=== PATIENT | male | born 1955 | race Caucasian/White ===

== ENCOUNTER 2020-12-12 08:55 | Emergency (ER) | payer MEDICARE, SELFPAY ==
--- NOTE | 2020-12-12 | ECG_ITS ---
Test Reason : BACK PAIN Blood Pressure : / mmHG Vent. Rate : 066 BPM Atrial Rate : 066 BPM P-R Int : 112 ms QRS Dur : 102 ms QT Int : 402 ms P-R-T Axes : 061 021 064 degrees QTc Int : 421 ms Normal sinus rhythm Normal ECG When compared with ECG of 16-JAN-2011 07:39, No significant change was found Referred By: Generic ED Physician Electronically Signed By:CANDICE HUNT MD
--- NOTE | ~2020-12-12 | XR_ITS ---
EXAMINATION: XR CHEST CLINICAL INFORMATION: Right upper back pain. COMPARISON: Chest radiographs dated 01/12/2019. TECHNIQUE: 2 views of the chest were obtained. FINDINGS: There is generalized hyperinflation. Mildly coarsened interstitial markings are seen bilaterally without focal abnormality. The heart and mediastinal structures are unremarkable. XR/XR chest 2V IMPRESSION: Pulmonary findings consistent with COPD without significant interval change. No acute cardiopulmonary process.
[2020-12-12 09:09] VITALS: BP 151/85; PULSE 73; RESP 16; TEMP 36.7; O2SAT 98; BMI 22.6
--- NOTE | 2020-12-12 09:26 | ED.BACK ---
HPI - Back Pain/Injury General Chief Complaint: Back Pain/Injury <CHARLY Smith Last Filed: 12/12/20 11:13> Stated Complaint: shoulder pain <CHARLY Smith Last Filed: 12/12/20 11:13> Time Seen by Provider: 12/12/20 09:17 <CHARLY Smith Last Filed: 12/12/20 11:13> Source: patient <CHARLY Smith Last Filed: 12/12/20 11:13> Mode of arrival: ambulatory <CHARLY Smith Last Filed: 12/12/20 11:13> Limitations: no limitations <CHARLY Smith Last Filed: 12/12/20 11:13> History of Present Illness HPI Narrative: 65 yo male previously healthy here with complaints of right upper back and neck pain times 3-4 days. Patient recalls waking up with the pain. No injury or trauma. He is retired and denies any heavy lifting or bending. He has pain which radiates down the right arm which is associated with intermittent numbness and tingling. Using ibuprofen and Lidoderm patches with continued pain. No headache, weakness, chest pain, shortness of breath, cough, leg swelling or pain. <CHARLY Smith Last Filed: 12/12/20 11:13> Related Data Home Medications: Previous Rx's Medication Instructions Recorded cyclobenzaprine 10 mg PO TID PRN #10 tab 12/12/20 lidocaine [Lidoderm] 1 patch TOPICAL DAILY #15 ea 12/12/20 prednisone 40 mg PO DAILY #10 tab 12/12/20 diazepam [Valium] 10 mg PO TID PRN 1 Days #7 tab 12/19/20 oxycodone 5 mg PO Q6H PRN #14 cap 12/19/20 <CHARLY Smith Last Filed: 12/12/20 11:13> Allergies/Adverse Reactions: Allergies Allergy/AdvReac Type Severity Reaction Status Date / Time No Known Allergies Allergy Verified 12/12/20 09:13 <CHARLY Smith Last Filed: 12/12/20 11:13> Review of Systems Review of Systems: Yes all other systems are reviewed and are negative <Tootie Wallace NP - Last Filed: 12/12/20 11:13> Constitutional: Constitutional: Reports no additional constitutional complaints, Denies body ache(s), Denies chills, Denies fever(s), Denies headache(s) and Denies weakness <Tootie Wallace NP - Last Filed: 12/12/20 11:13> Eyes: Eyes: Reports no additional eye complaints and Denies change in vision <Tootie Wallace NP - Last Filed: 12/12/20 11:13> ENT: Reports system reviewed and no additional complaints, except as documented, Denies dizziness, Denies headache(s), Denies nasal congestion, Denies nasal discharge and Denies neck pain <Tootie Wallace NP - Last Filed: 12/12/20 11:13> Cardiovascular: Cardiovascular: Reports no additional cardiovascular complaints, Denies chest pain, Denies leg edema and Denies dyspnea <Tootie Wallace NP - Last Filed: 12/12/20 11:13> Respiratory: Respiratory: Reports no additional respiratory complaints, Denies cough and Denies dyspnea <Tootie Wallace NP - Last Filed: 12/12/20 11:13> Gastrointestinal: Gastrointestinal: Reports no additional gastrointestinal complaints, Denies abdominal pain, Denies diarrhea, Denies nausea and Denies vomiting <Tootie Wallace NP - Last Filed: 12/12/20 11:13> Genitourinary: Genitourinary: Denies urinary incontinence <Tootie Wallace NP - Last Filed: 12/12/20 11:13> Musculoskeletal: Musculoskeletal: Reports no additional musculoskeletal complaints, Reports back pain, Denies arthralgias, Denies joint swelling, Denies neck pain, Denies numbness and Reports tingling <Tooite Wallace NP - Last Filed: 12/12/20 11:13> Integumentary/Breasts: Skin/Breast: Reports system reviewed and no additional complaints, except as docu and Denies rash <Tootie Wallace NP - Last Filed: 12/12/20 11:13> Neurologic: Reports system reviewed and no additional complaints, except as documented, Denies Abnormal speech present, Denies dizziness, Denies headache(s), Denies numbness, Reports tingling and Denies weakness <Tootie Wallace NP - Last Filed: 12/12/20 11:13> PENDING SALE TO [facility] Past Medical History Attestation statement: The following information was validated with the patient. <Tootie Wallace NP - Last Filed: 12/12/20 11:13> Source: old records reviewed and nursing notes reviewed <Tootie Wallace NP - Last Filed: 12/12/20 11:13> Medical History: Medical History No known health problems <Tootie Wallace NP - Last Filed: 12/12/20 11:13> Surgical History: Surgical History H/O hernia repair <Tootie Wallace NP - Last Filed: 12/12/20 11:13> Social History Social History: Social History Advance Directives: No Advance Directives Information Provided: No <Tootie Wallace NP - Last Filed: 12/12/20 11:13> Physical Exam Vital Signs: Vital Signs: Last Vital Signs Temp 98.0 F 12/12/20 09:09 Pulse 73 12/12/20 09:09 Resp 16 12/12/20 09:09 BP 151/85 H 12/12/20 09:09 Pulse Ox 98 12/12/20 09:09 Body Mass Index 22.6 <Tootie Wallace NP - Last Filed: 12/12/20 11:13> Vital Signs: Last Vital Signs Temp 98.0 F 12/12/20 09:09 Pulse 73 12/12/20 09:09 Resp 16 12/12/20 09:09 BP 151/85 H 12/12/20 09:09 Pulse Ox 98 12/12/20 09:09 Body Mass Index 22.6 <Sathya Fonseca MD - Last Filed: 12/26/20 14:31> Const: General: cooperative, healthy appearing, comfortable and no acute distress <Tootie Wallace NP - Last Filed: 12/12/20 11:13> Orientation/consciousness: patient oriented x3 <Tootie Wallace NP - Last Filed: 12/12/20 11:13> Limitations: no limitations <Tootie Wallace NP - Last Filed: 12/12/20 11:13> HENMT: Head: Yes normal to inspection <Tootie Wallace NP - Last Filed: 12/12/20 11:13> Ears: hearing grossly normal bilaterally <Tootie Wallace NP - Last Filed: 12/12/20 11:13> General nose exam: Normal external nose present <Tootie Wallace NP - Last Filed: 12/12/20 11:13> Face and sinus: Yes normal facial exam <Tootie Wallace NP - Last Filed: 12/12/20 11:13> Mouth: Normal oral and palatal mucosa present <Tootie Wallace NP - Last Filed: 12/12/20 11:13> Throat: Yes posterior oropharynx normal <Tootie Wallace NP - Last Filed: 12/12/20 11:13> Eyes: General: appearance normal, both eyes and all related structures <Tootie Wallace NP - Last Filed: 12/12/20 11:13> Pupils: Equal, round and reactive pupils present <Tootie Wallace NP - Last Filed: 12/12/20 11:13> Neck: Other: In the right upper back over the trapezius muscle there is palpable tenderness with a muscle spasm. When compressed the patient reports pain radiating down the right arm. Full range of motion of right upper extremity with no difficulty. 5/5 strength in the right upper extremity. Sensation is intact on exam. +palpable pulse distally. <Tootie Wallace NP - Last Filed: 12/12/20 11:13> Neck: Yes normal visual inspection <Tootie Wallaec NP - Last Filed: 12/12/20 11:13> Chest: Chest palpation & inspection: normal inspection of the chest <Tootie Wallace NP - Last Filed: 12/12/20 11:13> Resp: Effort & Inspection: normal respiratory effort <Tootie Wallace NP - Last Filed: 12/12/20 11:13> Auscultation: clear to auscultation bilaterally <Tootie Wallace NP - Last Filed: 12/12/20 11:13> Cardio: Rate: regular rate <Tootie Wallace NP - Last Filed: 12/12/20 11:13> Rhythm: regular rhythm <Tootie Wallace NP - Last Filed: 12/12/20 11:13> Peripheral pulses: Peripheral pulses 2+ throughout <Tootie Wallace NP - Last Filed: 12/12/20 11:13> GI: Inspection: Yes normal to inspection <Tootie Wallace NP - Last Filed: 12/12/20 11:13> Palpation (GI): Soft to palpation and nontender <Tootie Wallace NP - Last Filed: 12/12/20 11:13> Auscultation: normal bowel sounds <Tootie Wallace NP - Last Filed: 12/12/20 11:13> Back/Spine/Pelvis: Thoracic/Lumbar Spine: thoracic and lumbar spine normal to inspection <Tootie Wallace NP - Last Filed: 12/12/20 11:13> Skin: General skin exam: no rashes or lesions noted <Tootie Wallace NP - Last Filed: 12/12/20 11:13> Neuro: General: patient oriented x3, no focal motor deficits and normal sensation to monofilament <Tootie Wallace NP - Last Filed: 12/12/20 11:13> Cranial nerves: Yes Equal, round and reactive pupils present <Tootie Wallace NP - Last Filed: 12/12/20 11:13> Cognition (Neuro): normal cognition <Tootie Wallace NP - Last Filed: 12/12/20 11:13> Speech: No Abnormal speech present <Tootie Wallace NP - Last Filed: 12/12/20 11:13> Gait exam (Neuro): Normal gait present <Tootie Wallace NP - Last Filed: 12/12/20 11:13> Motor exam (neuro): 5/5 motor strength present throughout <Tootie Wallace NP - Last Filed: 12/12/20 11:13> Extrem: General: Yes normal to inspection <Tootie Wallace NP - Last Filed: 12/12/20 11:13> Course Course Course Narrative: 65-year-old male here with right upper back pain times 3-4 days, atraumatic with radiation down the right arm with intermittent numbness and tingling. Due to age, risk factors of cigarette smoking will check EKG, CXR, labs. 1020-labs unremarkable. EKG shows no ischemic changes. Chest x-ray consistent with COPD but no other acute finding. Patient tells me that his pain is improved after receiving some IV Toradol and a dose of p.o. Flexeril here. Likely cervical radiculopathy. Reviewed findings with the patient. Reviewed worrisome signs and symptoms including weakness, chest pain, shortness of breath when to return to the emergency department. Comfortable discharge home. <Tootie Wallace NP - Last Filed: 12/12/20 11:13> I have reviewed the chart <Sathya Fonseca MD - Last Filed: 12/26/20 14:31> MDM - Back Pain/Injury MDM Narrative Medical decision making narrative: Cervical radiculopathy, ACS As likely ACS with symptoms greater than 4 days, negative troponin and EKG which shows no EKG changes <Tootie Wallace NP - Last Filed: 12/12/20 11:13> Medical Records Attestation: I reviewed the patient's medical records. <Tootie Wallace NP - Last Filed: 12/12/20 11:13> Lab Data Attestation: I reviewed the patient's lab results. <Tootie Wallace NP - Last Filed: 12/12/20 11:13> Result diagrams: : 12/12/20 09:31 12/12/20 09:31 <Tootie Wallace NP - Last Filed: 12/12/20 11:13> Labs: Lab Results 12/12/20 12/12/20 12/12/20 Range/Units 09:31 09:31 09:31 WBC 7.0 (4.8-10.8) X10*3/uL RBC 4.55 L (4.60-5.80) X10*6/uL Hgb 14.0 (14.0-18.0) g/dl Hct 42.5 (42-52) % MCV 93.4 (80-98) fL MCH 30.8 (27.0-33.0) pg MCHC 32.9 (31.0-36.0) g/dl RDW 12.1 (11.0-16.0) % Plt Count 219 (160-400) X10*3/uL MPV 10.9 (9.4-12.4) fL Immature Gran % (Auto) 0.3 (0.0-0.4) % Neut % (Auto) 64.3 (45-73) % Lymph % (Auto) 24.3 (20-40) % Dewey % (Auto) 8.3 (2-11) % Eos % (Auto) 2.4 (0-4) % Baso % (Auto) 0.4 (0-2) % Lymph # (Auto) 1.7 (1.2-4.9) X10*3/uL Dewey # (Auto) 0.6 (0.1-1.2) X10*3/uL Eos # (Auto) 0.2 (0.0-0.4) X10*3/uL Baso # (Auto) 0.0 (0.0-0.2) X10*3/uL Abs Immat Gran (auto) 0.02 (0.00-0.03) X10*3/uL Absolute Neuts (auto) 4.5 (2.0-8.3) X10*3/uL Absolute Nucleated RBC 0.000 (0.0-0.012) X10*3/uL Nucleated RBC % (auto) 0.0 (0.0-0.2) /100WBC Hold Blue Top SEE NOTE Sodium 140 (135-145) mmol/L Potassium 4.2 (3.3-5.1) mmol/L Chloride 107 (96-108) mmol/L Carbon Dioxide 26 (22-29) mmol/L Anion Gap 11 L (12-20) BUN 16 (9-16) mg/dL Creatinine 0.94 (0.5-1.4) mg/dL Estim Creat Clear Calc 68.4 Estimated GFR > 60 Random Glucose 110 (60-115) mg/dL Calcium 8.7 (8.4-10.2) mg/dL Magnesium 2.3 (1.6-2.6) mg/dL Total Bilirubin 0.5 (0.0-1.0) mg/dL Direct Bilirubin 0.2 (0.0-0.5) mg/dL AST 15 (5-37) U/L ALT 10 (0-40) U/L Alkaline Phosphatase 124 H (39-117) U/L Troponin I High Sens (<3.5-35.0) ng/L Total Protein 6.6 (6.5-8.0) g/dL Albumin 4.1 (3.5-5.0) g/dL 12/12/20 Range/Units 09:31 WBC (4.8-10.8) X10*3/uL RBC (4.60-5.80) X10*6/uL Hgb (14.0-18.0) g/dl Hct (42-52) % MCV (80-98) fL MCH (27.0-33.0) pg MCHC (31.0-36.0) g/dl RDW (11.0-16.0) % Plt Count (160-400) X10*3/uL MPV (9.4-12.4) fL Immature Gran % (Auto) (0.0-0.4) % Neut % (Auto) (45-73) % Lymph % (Auto) (20-40) % Dewey % (Auto) (2-11) % Eos % (Auto) (0-4) % Baso % (Auto) (0-2) % Lymph # (Auto) (1.2-4.9) X10*3/uL Dewey # (Auto) (0.1-1.2) X10*3/uL Eos # (Auto) (0.0-0.4) X10*3/uL Baso # (Auto) (0.0-0.2) X10*3/uL Abs Immat Gran (auto) (0.00-0.03) X10*3/uL Absolute Neuts (auto) (2.0-8.3) X10*3/uL Absolute Nucleated RBC (0.0-0.012) X10*3/uL Nucleated RBC % (auto) (0.0-0.2) /100WBC Hold Blue Top Sodium (135-145) mmol/L Potassium (3.3-5.1) mmol/L Chloride (96-108) mmol/L Carbon Dioxide (22-29) mmol/L Anion Gap (12-20) BUN (9-16) mg/dL Creatinine (0.5-1.4) mg/dL Estim Creat Clear Calc Estimated GFR Random Glucose (60-115) mg/dL Calcium (8.4-10.2) mg/dL Magnesium (1.6-2.6) mg/dL Total Bilirubin (0.0-1.0) mg/dL Direct Bilirubin (0.0-0.5) mg/dL AST (5-37) U/L ALT (0-40) U/L Alkaline Phosphatase (39-117) U/L Troponin I High Sens 3.7 (<3.5-35.0) ng/L Total Protein (6.5-8.0) g/dL Albumin (3.5-5.0) g/dL <Tootie Wallace TUG CAPTAIN - Last Filed: 12/12/20 11:13> Lab Results 12/12/20 12/12/20 12/12/20 Range/Units 09:31 09:31 09:31 WBC 7.0 (4.8-10.8) X10*3/uL RBC 4.55 L (4.60-5.80) X10*6/uL Hgb 14.0 (14.0-18.0) g/dl Hct 42.5 (42-52) % MCV 93.4 (80-98) fL MCH 30.8 (27.0-33.0) pg MCHC 32.9 (31.0-36.0) g/dl RDW 12.1 (11.0-16.0) % Plt Count 219 (160-400) X10*3/uL MPV 10.9 (9.4-12.4) fL Immature Gran % (Auto) 0.3 (0.0-0.4) % Neut % (Auto) 64.3 (45-73) % Lymph % (Auto) 24.3 (20-40) % Dewey % (Auto) 8.3 (2-11) % Eos % (Auto) 2.4 (0-4) % Baso % (Auto) 0.4 (0-2) % Lymph # (Auto) 1.7 (1.2-4.9) X10*3/uL Dewey # (Auto) 0.6 (0.1-1.2) X10*3/uL Eos # (Auto) 0.2 (0.0-0.4) X10*3/uL Baso # (Auto) 0.0 (0.0-0.2) X10*3/uL Abs Immat Gran (auto) 0.02 (0.00-0.03) X10*3/uL Absolute Neuts (auto) 4.5 (2.0-8.3) X10*3/uL Absolute Nucleated RBC 0.000 (0.0-0.012) X10*3/uL Nucleated RBC % (auto) 0.0 (0.0-0.2) /100WBC Hold Blue Top SEE NOTE Sodium 140 (135-145) mmol/L Potassium 4.2 (3.3-5.1) mmol/L Chloride 107 (96-108) mmol/L Carbon Dioxide 26 (22-29) mmol/L Anion Gap 11 L (12-20) BUN 16 (9-16) mg/dL Creatinine 0.94 (0.5-1.4) mg/dL Estim Creat Clear Calc 68.4 Estimated GFR > 60 Random Glucose 110 (60-115) mg/dL Calcium 8.7 (8.4-10.2) mg/dL Magnesium 2.3 (1.6-2.6) mg/dL Total Bilirubin 0.5 (0.0-1.0) mg/dL Direct Bilirubin 0.2 (0.0-0.5) mg/dL AST 15 (5-37) U/L ALT 10 (0-40) U/L Alkaline Phosphatase 124 H (39-117) U/L Troponin I High Sens (<3.5-35.0) ng/L Total Protein 6.6 (6.5-8.0) g/dL Albumin 4.1 (3.5-5.0) g/dL 12/12/20 Range/Units 09:31 WBC (4.8-10.8) X10*3/uL RBC (4.60-5.80) X10*6/uL Hgb (14.0-18.0) g/dl Hct (42-52) % MCV (80-98) fL MCH (27.0-33.0) pg MCHC (31.0-36.0) g/dl RDW (11.0-16.0) % Plt Count (160-400) X10*3/uL MPV (9.4-12.4) fL Immature Gran % (Auto) (0.0-0.4) % Neut % (Auto) (45-73) % Lymph % (Auto) (20-40) % Dewey % (Auto) (2-11) % Eos % (Auto) (0-4) % Baso % (Auto) (0-2) % Lymph # (Auto) (1.2-4.9) X10*3/uL Dewey # (Auto) (0.1-1.2) X10*3/uL Eos # (Auto) (0.0-0.4) X10*3/uL Baso # (Auto) (0.0-0.2) X10*3/uL Abs Immat Gran (auto) (0.00-0.03) X10*3/uL Absolute Neuts (auto) (2.0-8.3) X10*3/uL Absolute Nucleated RBC (0.0-0.012) X10*3/uL Nucleated RBC % (auto) (0.0-0.2) /100WBC Hold Blue Top Sodium (135-145) mmol/L Potassium (3.3-5.1) mmol/L Chloride (96-108) mmol/L Carbon Dioxide (22-29) mmol/L Anion Gap (12-20) BUN (9-16) mg/dL Creatinine (0.5-1.4) mg/dL Estim Creat Clear Calc Estimated GFR Random Glucose (60-115) mg/dL Calcium (8.4-10.2) mg/dL Magnesium (1.6-2.6) mg/dL Total Bilirubin (0.0-1.0) mg/dL Direct Bilirubin (0.0-0.5) mg/dL AST (5-37) U/L ALT (0-40) U/L Alkaline Phosphatase (39-117) U/L Troponin I High Sens 3.7 (<3.5-35.0) ng/L Total Protein (6.5-8.0) g/dL Albumin (3.5-5.0) g/dL <Sathya Fonseca MD - Last Filed: 12/26/20 14:31> Imaging Data Chest x-ray: Attestation: I personally reviewed and interpreted this imaging study as follows: <Tootie Wallace NP - Last Filed: 12/12/20 11:13> Radiologist's impression: IMPRESSION: Pulmonary findings consistent with COPD without significant interval change. No acute cardiopulmonary process. <Tootie Wallace NP - Last Filed: 12/12/20 11:13> ECG Data Attestation: I personally reviewed and interpreted this ECG as follows: <Tootie Wallace NP - Last Filed: 12/12/20 11:13> ECG interpretation date: 12/12/20 <Tootie Wallace NP - Last Filed: 12/12/20 11:13> ECG interpretation time: 09:15 <Tootie Wallace NP - Last Filed: 12/12/20 11:13> Interpretation: Normal sinus rhythm with a rate of 66, normal [place], normal QRS, normal QTC <Tootie Wallace NP - Last Filed: 12/12/20 11:13> Discharge Plan Discharge Clinical Impression: Cervical radiculopathy <Tootie Wallace NP - Last Filed: 12/12/20 11:13> Patient Disposition: Home, Self-Care <Tootie Wallace NP - Last Filed: 12/12/20 11:13> Instructions: Cervical Radiculopathy (ED) <Tootie Wallace NP - Last Filed: 12/12/20 11:13> Additional Instructions: Heat to the area. Gentle stretching. Follow-up with primary care doctor this week. Continue ibuprofen and medicated patches. We are also prescribing a low-dose muscle relaxant which can take every 8 hours as needed and several days of prednisone. <Tootie Wallace NP - Last Filed: 12/12/20 11:13> Prescriptions: New cyclobenzaprine 10 mg tablet 10 mg PO TID PRN (Reason: muscle spasm) Qty: 10 RF: 0 lidocaine [Lidoderm] 5 % adhesive patch,medicated 1 patch topical DAILY Qty: 15 RF: 0 prednisone 20 mg tablet 40 mg PO DAILY Qty: 10 RF: 0 No Action diazepam [Valium] 10 mg tablet 10 mg PO TID PRN (Reason: muscle spasm) 1 Days Qty: 7 RF: 0 oxycodone 5 mg capsule 5 mg PO Q6H PRN (Reason: pain) Qty: 14 RF: 0 <Tootie Wallace NP - Last Filed: 12/12/20 11:13> Referrals: Guanaco Gillespie MD [Primary Care Provider] - 2 days <Tootie Wallace NP - Last Filed: 12/12/20 11:13> Interventions: ED Discharge Assessment Last Done: 12/12/20 10:38 <Tootie Wallace NP - Last Filed: 12/12/20 11:13> Discharge Date/Time: 12/12/20 10:43 <Tootie Wallace NP - Last Filed: 12/12/20 11:13>
[2020-12-12 09:39] LABS: MANUAL DIFF FLAG NO
[2020-12-12 09:40] LABS: Basophils Percent Auto 0.4 % (0-2); Eosinophils Absolute Auto 0.2 X10*3/uL (0.0-0.4); Eosinophils Percent Auto 2.4 % (0-4); Hematocrit 42.5 % (42-52); Imm Gran Abs Auto 0.02 X10*3/uL (0.00-0.03); Imm Gran Pct Auto 0.3 % (0.0-0.4); Lymphocytes Absolute Auto 1.7 X10*3/uL (1.2-4.9); Lymphocytes Percent Auto 24.3 % (20-40); Mean Corpuscular HGB Conc 32.9 g/dl (31.0-36.0); Mean Corpuscular Hemoglobin 30.8 pg (27.0-33.0); Mean Corpuscular Volume 93.4 fL (80-98); Mean Platelet Volume 10.9 fL (9.4-12.4); Monocytes Absolute Auto 0.6 X10*3/uL (0.1-1.2); Monocytes Percent Auto 8.3 % (2-11); Neutrophils Absolute Auto 4.5 X10*3/uL (2.0-8.3); Neutrophils Percent Auto 64.3 % (45-73); Platelet Count 219 X10*3/uL (160-400); Red Blood Count 4.55 X10*6/uL (4.60-5.80); Red Cell Distribution Width 12.1 % (11.0-16.0)
[2020-12-12] MEDS: Ketorolac Tromethamine 30 MG/ML VIAL IVPUSH (09:42)
[2020-12-12] MEDS: Cyclobenzaprine HCl 10 MG TABLET PO (09:43)
--- NOTE | 2020-12-12 09:59 | PC.NURSE ---
20 ga iv est in l ac approx 0930 pt resting comfortably in chair with strong and regular radial pulse and nonlabored resps. awaiting lab results.
[2020-12-12 10:01] LABS: Alanine Aminotransferase 10 U/L (0-40); Albumin Level 4.1 g/dL (3.5-5.0); Alkaline Phosphatase 124 U/L (39-117); Anion Gap 11 (12-20); Aspartate Amino Transferase 15 U/L (5-37); Bilirubin Direct 0.2 mg/dL (0.0-0.5); Bilirubin Total 0.5 mg/dL (0.0-1.0); Blood Urea Nitrogen 16 mg/dL (9-16); Calcium 8.7 mg/dL (8.4-10.2); Carbon Dioxide 26 mmol/L (22-29); Chloride 107 mmol/L (96-108); Creatinine Clr Calc Pharmacy 68.4; Estimated Glomerular Filt Rate > 60; Glucose Random 110 mg/dL (60-115); Magnesium 2.3 mg/dL (1.6-2.6); Potassium 4.2 mmol/L (3.3-5.1); Sodium 140 mmol/L (135-145); Total Protein 6.6 g/dL (6.5-8.0)
[2020-12-12 10:05] LABS: Troponin-I High Sensitivity 3.7 ng/L (<3.5-35.0)
== END 2020-12-12 10:43 | disposition home or self-care (01) ==
PROVIDERS: Nurse Practitioner Family; Emergency Provider Emergency Medicine; PCP Internal Medicine
DX: M54.12 Radiculopathy, cervical region (principal); M54.2 Cervicalgia; Z79.899 Other long term (current) drug therapy
CPT/HCPCS: 36415; 71046; 80048; 80076; 83735; 84484; 85025; 93005; 96374; 99283; 99284; J1885

== ENCOUNTER 2020-12-19 09:47 | Emergency (ER) | payer MEDICARE, SELFPAY ==
[2020-12-19 09:57] VITALS: BP 173/97; PULSE 79; RESP 18; TEMP 36.8; O2SAT 95; BMI 23.3
--- NOTE | 2020-12-19 10:00 | ED_ITS ---
HPI - General Adult General Chief complaint: Neck Pain/Injury Stated complaint: back,shoulder pain Time Seen by Provider: 12/19/20 09:59 History of Present Illness HPI narrative: Patient complains of pain shooting down his right arm from a painful area in the right trapezius with tingling down right arm , no numbness no weakness, no changes to bowel or bladder, no trauma or inury Related Data Previous Rx's Medication Instructions Recorded cyclobenzaprine 10 mg PO TID PRN #10 tab 12/12/20 lidocaine [Lidoderm] 1 patch TOPICAL DAILY #15 ea 12/12/20 prednisone 40 mg PO DAILY #10 tab 12/12/20 diazepam [Valium] 10 mg PO TID PRN 1 Days #7 tab 12/19/20 oxycodone 5 mg PO Q6H PRN #14 cap 12/19/20 Allergies Allergy/AdvReac Type Severity Reaction Status Date / Time No Known Allergies Allergy Verified 12/12/20 09:13 Review of Systems Review of Systems: Positive for right-sided neck and trapezius pain with pain radiating down to the right arm with some tingling Negatives are no fever no chills no dizziness no weakness no numbness no changes to bowel or bladder no chest pain no shortness of breath no abdominal pain PMFSH Past Medical History Source: nursing notes reviewed Medical History No known health problems Surgical History H/O hernia repair Social History Social History Advance Directives: No Advance Directives Information Provided: No Physical Exam Vital Signs: Vital Signs: Last Vital Signs Temp 98.3 F 12/19/20 09:57 Pulse 79 12/19/20 09:57 Resp 18 12/19/20 09:57 BP 173/97 H 12/19/20 09:57 Pulse Ox 95 12/19/20 09:57 Body Mass Index 23.3 General appearance no acute distress, uncomfortable appearing relaxed and cooperative Head is normocephalic atraumatic The neck is supple but there is some pain with movement and there is tenderness to the right trapezius and the right lateral neck there is no midline tenderness, skin of the neck was normal The chest was clear to auscultation bilaterally with full symmetric equal breath sounds The heart rate and rhythm regular no murmur Abdomen soft nontender The back had a full range of motion Skin no rash Neuro earth observations chief scientist strength was 5/5 and symmetrical in both hands, motor is 5/5 and symmetrical Sensation was intact and symmetrical in both hands, gait and balance were normal, verbal interaction comprehension and speech were normal, no facial asymmetry Course Course Course Narrative: Patient can follow closely with primary doctor and is discharged with analgesics, there was no neurological deficit Discharge Plan Discharge Clinical Impression: Cervical radiculopathy Patient Disposition: Home, Self-Care Additional Instructions: Because muscle relaxer and lidocaine patch are not sufficient for pain relief we are heading some medications Instead of the Flexeril, you can try Valium as a muscle relaxer at night as it may be more effective and help with sleep As Tylenol and Motrin have not been sufficient you can try oxycodone which is a narcotic pain killer in you can take 1 or 2 every 6 hours as needed Both Valium and oxycodone cause drowsiness so no driving for 6-8 hours after taking either 1 of them Get a referral from your primary doctor for physical therapy and possible specialist evaluation You can try [facility] [phone] Best plan for pain control is make sure you are taking 2 extra-strength Tylenol so, a 1000 mg 3 times a day as well as Motrin 4 times a day, and then use oxycodone narcotic only as needed Prescriptions: New diazepam [Valium] 10 mg tablet 10 mg PO TID PRN (Reason: muscle spasm) 1 Days Qty: 7 RF: 0 oxycodone 5 mg capsule 5 mg PO Q6H PRN (Reason: pain) Qty: 14 RF: 0 No Action cyclobenzaprine 10 mg tablet 10 mg PO TID PRN (Reason: muscle spasm) Qty: 10 RF: 0 lidocaine [Lidoderm] 5 % adhesive patch,medicated 1 patch topical DAILY Qty: 15 RF: 0 prednisone 20 mg tablet 40 mg PO DAILY Qty: 10 RF: 0 Interventions: ED Discharge Assessment Last Done: 12/19/20 10:32 Discharge Date/Time: 12/19/20 10:32
== END 2020-12-19 10:32 | disposition home or self-care (01) ==
PROVIDERS: Emergency Provider Emergency Medicine; PCP Internal Medicine
DX: M54.12 Radiculopathy, cervical region (principal); M25.511 Pain in right shoulder
CPT/HCPCS: 99283

== ENCOUNTER 2020-12-28 08:44 | Outpatient (REF) | payer MEDICARE, SELFPAY ==
--- NOTE | ~2020-12-28 | XR_ITS ---
EXAMINATION: XR CERVICAL SPINE CLINICAL INFORMATION: Shoulder neck pain. COMPARISON: CT of the neck soft tissues dated 04/14/2011. TECHNIQUE: 3 views of the cervical spine were obtained. FINDINGS: There is straightening of expected cervical lordosis. Atlantodens interval is preserved. The dens is obscured by overlying soft tissues. The C1-C2 articulation appears normally aligned. Endplate sclerosis and anterior marginal endplate osteophytes are noted from C5-C7 with mild C5-C6 and moderate C6-C7 degenerative disc height loss. Tiny ossicles are noted superficial to the C4-C6 spinous processes. Calcifications in the bilateral neck soft tissues likely vascular. Visualized lung apices are clear. XR/XR cervical spine 3V IMPRESSION: Cervical spondylosis centered at C5-C7.
[2020-12-28 10:16] LABS: C Reactive Protein 0.12 mg/dL (< or = 0.50); Cholesterol 208 mg/dL; HDL Cholesterol 59 mg/dL; LDL Cholesterol Calculated 128 mg/dl; Triglycerides 109 mg/dL
[2020-12-28 10:26] LABS: Prostate Specific Antigen 1.03 ng/mL (<0.05-4.0)
[2020-12-28 10:57] LABS: Glucose Urine UA NEG (NEG); Leukocyte Esterase Urine NEG (NEG); Nitrite Urine NEG (NEG); Urine Blood NEG (NEG); Urine Ketones NEG (NEG); Urine Protein NEG (NEG-TRACE)
[2020-12-28 11:06] LABS: Appearance Urine CLEAR; Color Urine YELLOW
== END 2020-12-28 08:45 | disposition home or self-care (01) ==
LOC: HO.LAB 08:44
PROVIDERS: PCP Internal Medicine; Visit Provider Internal Medicine
DX: Z12.5 Encounter for screening for malignant neoplasm of prostate (principal); M54.2 Cervicalgia; M25.511 Pain in right shoulder; J44.9 Chronic obstructive pulmonary disease, unspecified; N40.0 Benign prostatic hyperplasia without lower urinary tract symptoms
CPT/HCPCS: 36415; 72040; 80061; 81003; 84153; 86140

== ENCOUNTER 2021-01-18 10:31 | Outpatient (REF) | payer MEDICARE, SELFPAY ==
--- NOTE | ~2021-01-18 | MR_ITS ---
EXAMINATION: MR CERVICAL SPINE WITHOUT CONTRAST CLINICAL INFORMATION: Right arm radiculopathy. COMPARISON: Cervical spine radiographs from 12/28/2020. TECHNIQUE: MRI of the cervical spine was obtained using routine sequences without contrast. FINDINGS: Minimal degenerative retrolisthesis of C3 on C4. Otherwise, normal anatomic alignment. Advanced degenerative disc disease at C5-C6 and C6-C7. Mild degenerative disc disease at all additional cervical levels. Associated mixed Modic type discogenic endplate changes including mild Modic type I discogenic edema at C5-C6 and C6-C7. Mild marrow edema within the right-sided C4-C5 facets consistent with degenerative stress reaction. No additional suspicious marrow edema. The vertebral body heights are largely maintained. The spinal cord signal abnormalities. Limited evaluation of the soft tissues of the neck without demonstrated abnormalities. The flow voids of the major cervical vessels are maintained. Normal appearance of the cervicomedullary junction and visualized posterior fossa. SPINAL LEVELS: C2-C3: Mild disc-osteophyte complex. There is no uncovertebral joint arthropathy. There is severe right and mild left facet joint arthropathy. There is moderate right and no left neural foraminal stenosis. There is no spinal canal stenosis. C3-C4: Moderate disc-osteophyte complex. There is moderate right worse than left uncovertebral joint arthropathy. There is moderate bilateral facet joint arthropathy. There is severe right and mild left neural foraminal stenosis. There is no spinal canal stenosis. C4-C5: Mild disc-osteophyte complex. There is mild bilateral uncovertebral joint arthropathy. There is moderate bilateral facet joint arthropathy. There is severe right and moderate left neural foraminal stenosis. There is no spinal canal stenosis. C5-C6: Moderate disc-osteophyte complex. There is severe right and moderate left uncovertebral joint arthropathy. There is moderate bilateral facet joint arthropathy. There is severe right and moderate left neural foraminal stenosis. There is mild spinal canal stenosis. C6-C7: Moderate disc-osteophyte complex. There is severe right and moderate left uncovertebral joint arthropathy. There is moderate bilateral facet joint arthropathy. There is moderate right worse than left neural foraminal stenosis. There is mild spinal canal stenosis. C7-T1: Normal annular contour. There is mild bilateral uncovertebral joint arthropathy. There is mild bilateral facet joint arthropathy. There is no neural foraminal stenosis. There is no spinal canal stenosis. MR/MR cervical spine wo con IMPRESSION: Moderate multilevel degenerative spondyloarthropathy of the cervical spine as described in detail above. Most notably, there are mild spinal canal stenoses at C5-C6 and C6-C7. Moderate to severe neural foraminal stenoses from C2-C7.
== END 2021-01-18 10:32 | disposition home or self-care (01) ==
LOC: HO.MRI 10:31
PROVIDERS: Visit Provider Internal Medicine
DX: M54.12 Radiculopathy, cervical region (principal)
CPT/HCPCS: 72141

== ENCOUNTER 2021-02-22 09:19 | Outpatient (REF) | payer MEDICARE, SELFPAY ==
[2021-02-22 10:05] LABS: MANUAL DIFF FLAG NO
[2021-02-22 10:17] LABS: Basophils Percent Auto 0.5 % (0-2); Eosinophils Absolute Auto 0.1 X10*3/uL (0.0-0.4); Eosinophils Percent Auto 1.7 % (0-4); Hemoglobin 14.4 g/dl (14.0-18.0); Imm Gran Abs Auto 0.02 X10*3/uL (0.00-0.03); Imm Gran Pct Auto 0.3 % (0.0-0.4); Lymphocytes Absolute Auto 1.7 X10*3/uL (1.2-4.9); Lymphocytes Percent Auto 27.2 % (20-40); Mean Corpuscular HGB Conc 33.5 g/dl (31.0-36.0); Mean Corpuscular Hemoglobin 31.2 pg (27.0-33.0); Mean Corpuscular Volume 93.1 fL (80-98); Mean Platelet Volume 10.9 fL (9.4-12.4); Monocytes Absolute Auto 0.5 X10*3/uL (0.1-1.2); Monocytes Percent Auto 7.8 % (2-11); Neutrophils Percent Auto 62.5 % (45-73); Platelet Count 256 X10*3/uL (160-400); Red Blood Count 4.62 X10*6/uL (4.60-5.80); Red Cell Distribution Width 12.2 % (11.0-16.0); White Blood Count 6.3 X10*3/uL (4.8-10.8)
[2021-02-22 10:51] LABS: Alanine Aminotransferase 8 U/L (0-40); Albumin Level 4.1 g/dL (3.5-5.0); Alkaline Phosphatase 119 U/L (39-117); Anion Gap 12 (12-20); Aspartate Amino Transferase 19 U/L (5-37); Bilirubin Total 1.2 mg/dL (0.0-1.0); Blood Urea Nitrogen 17 mg/dL (9-16); Carbon Dioxide 23 mmol/L (22-29); Chloride 107 mmol/L (96-108); Cholesterol 179 mg/dL; Estimated Glomerular Filt Rate > 60; Glucose Fasting 89 mg/dL (60-99); HDL Cholesterol 49 mg/dL; LDL Cholesterol Calculated 117 mg/dl; Potassium 4.4 mmol/L (3.3-5.1); Sodium 138 mmol/L (135-145); Total Protein 6.5 g/dL (6.5-8.0); Triglycerides 67 mg/dL
[2021-02-22 11:15] LABS: Thyroid Stimulating Hormone 0.63 uIU/mL (0.32-4.0)
== END 2021-02-22 09:20 | disposition home or self-care (01) ==
LOC: HO.LAB 09:19
PROVIDERS: PCP Internal Medicine; Visit Provider Internal Medicine
DX: Z00.00 Encounter for general adult medical examination without abnormal findings (principal); E11.9 Type 2 diabetes mellitus without complications; E03.9 Hypothyroidism, unspecified
CPT/HCPCS: 36415; 80053; 80061; 84443; 85025

== ENCOUNTER 2021-08-21 10:47 | Outpatient (REF) | payer MEDICARE, SELFPAY ==
--- NOTE | ~2021-08-21 | XR_ITS ---
EXAMINATION:XR cervical spine 2V CLINICAL INFORMATION: Cervalgia COMPARISON: None TECHNIQUE: 3 views of the cervical spine were obtained. Frontal lateral and open-mouth odontoid view FINDINGS: 7 cervical vertebrae identified maintaining normal height , loss of normal cervical lordosis likely spasm.. Narrowing of intervertebral disc spaces at C5-C6, C6-C7 and C7-T1 suggests underlying moderate degenerative disc disease. No prevertebral soft tissue swelling. Surrounding soft tissue and included lung apices are clear. Included lung apices are clear. XR/XR cervical spine 2V IMPRESSION: *Narrowing of intervertebral disc spaces suggest underlying degenerative disc disease. . *Loss of normal cervical lordosis likely spasm. *No fracture.
== END 2021-08-21 10:48 | disposition home or self-care (01) ==
LOC: HO.XRAY 10:47
PROVIDERS: PCP Internal Medicine; Visit Provider Internal Medicine
DX: M54.2 Cervicalgia (principal)
CPT/HCPCS: 72040

== ENCOUNTER 2021-09-27 10:03 | Outpatient (REF) | payer MEDICARE, SELFPAY ==
[2021-09-27 10:26] LABS: COVID-19 Test Negative (Negative)
== END 2021-09-27 10:04 | disposition home or self-care (01) ==
LOC: HO.LAB 10:03
PROVIDERS: Visit Provider Internal Medicine
DX: Z20.822 Contact with and (suspected) exposure to COVID-19 (principal)
CPT/HCPCS: 87635; C9803

== ENCOUNTER 2021-10-18 12:00 | Outpatient (RCR) | payer MEDICARE, SELFPAY ==
--- NOTE | 2021-09-12 12:49 | MHC.PT.EP ---
[facility] [place] Office [place] Office [place] Office [address] Akilah Juarez [address] [phone] F: [phone] F: [phone] F: [phone] F: [phone] Physical Therapy Plan of Care Date of Evaluation: Date of Surgery: N/A Diagnosis: cervicalgia Assessment: pt's signs and symptoms consistent w/ poor habitual posturing, straightening of cervical lordosis, and reduced cervical SB and rotation. pt presents to physical therapy with pain, decreased range of motion, decreased strength, impaired functional mobility, impaired postural awareness. pt is a good candidate for skilled PT due to age, potential remediation of impairments, typical disease/condition progression and prognosis, comorbidities, and motivation. pt would benefit from tailored strengthening and stretching exercise program, functional training, postural re-training, neuromuscular re-education, modalities as needed for pain, equipment safety demonstration. Frequency and Duration: The patient will be seen 1x/wk for 4 wks Short Term Goals: pt will be I w/ HEP to promote self-management of condition. pt will demo proper sitting posture w/ lumbar roll to promote neutral spine w/ seated ADLs. 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 pt will improve B cervical rotation by 15 degrees to promote ease in head turns w/ driving. Treatment Plan: Modalities to reduce pain, spasms and effusion. Manual therapy to restore motion and function. Therapeutic exercise to improve strength and flexibility. Neuromuscular re-education for posture and balance. Therapeutic activities to return to functional activities of daily living. Electronically signed by: Desiree Ramirez PT, DPT Please sign and return to therapist. Thank you for your referral.
--- NOTE | 2021-10-26 10:50 | MHC.PT.DC ---
[facility] [place] Office [place] Office [place] Office [address] [phone] F: [phone] F: [phone] F: [phone] F: [phone] Physical Therapy Discharge Report Diagnosis: cervicalgia Date of Surgery: N/A Date of Evaluation: 09/19/21 Date of Discharge: 10/26/21 Treatments to Date: 6 Cancellations to Date: 0 No Shows to Date: 0 Discharge Status: Improved Function Independent with HEP Patient Elected to Stop Discharge Summary: The patient called to discharge himself from physical therapy as he is feeling better now and feels he has the tools he needs to manage his symptoms accordingly. He is independent with his home exercise program. He is discharged from this physical therapy plan of care per his request. Electronically signed by: Desiree Ramirez PT, DPT Please sign and return to therapist. Thank you for your referral.
== END 2021-10-26 10:50 | disposition home or self-care (01) ==
LOC: HO.PT 12:00
PROVIDERS: PCP Internal Medicine; Visit Provider Internal Medicine
DX: M54.2 Cervicalgia (principal)
CPT/HCPCS: 97012; 97110; 97140; 97161

== ENCOUNTER 2021-12-01 11:33 | Outpatient (REF) | payer MEDICARE, SELFPAY ==
[2021-12-01 11:57] LABS: MANUAL DIFF FLAG NO
[2021-12-01 13:21] LABS: Basophils Percent Auto 0.5 % (0-2); Eosinophils Absolute Auto 0.2 X10*3/uL (0.0-0.4); Eosinophils Percent Auto 2.2 % (0-4); Hematocrit 43.9 % (42.0-52.0); Hemoglobin 14.4 g/dl (14.0-18.0); Imm Gran Abs Auto 0.02 X10*3/uL (0.00-0.03); Imm Gran Pct Auto 0.2 % (0.0-0.4); Lymphocytes Absolute Auto 1.6 X10*3/uL (1.2-4.9); Lymphocytes Percent Auto 19.7 % (20-40); Mean Corpuscular HGB Conc 32.8 g/dl (31.0-36.0); Mean Corpuscular Hemoglobin 31.2 pg (27.0-33.0); Mean Corpuscular Volume 95.2 fL (80.0-98.0); Mean Platelet Volume 10.9 fL (9.4-12.4); Monocytes Absolute Auto 0.6 X10*3/uL (0.1-1.2); Monocytes Percent Auto 6.8 % (2-11); Neutrophils Absolute Auto 5.8 x10*3/uL (2.0-8.3); Neutrophils Percent Auto 70.6 % (45-73); Platelet Count 268 X10*3/uL (160-400); Red Blood Count 4.61 X10*6/uL (4.60-5.80); Red Cell Distribution Width 12.7 % (11.0-16.0); White Blood Count 8.1 X10*3/uL (4.8-10.8)
[2021-12-01 13:57] LABS: Alanine Aminotransferase 12 U/L (0-40); Albumin Level 4.1 g/dL (3.5-5.0); Alkaline Phosphatase 110 U/L (39-117); Anion Gap 11 (12-20); Aspartate Amino Transferase 14 U/L (5-37); Bilirubin Total 0.9 mg/dL (0.0-1.0); Blood Urea Nitrogen 16 mg/dL (9-16); Calcium 9.2 mg/dL (8.4-10.2); Carbon Dioxide 27 mmol/L (22-29); Chloride 107 mmol/L (96-108); Cholesterol 184 mg/dL; Estimated Glomerular Filt Rate > 60; Glucose Fasting 90 mg/dL (60-99); HDL Cholesterol 48 mg/dL; LDL Cholesterol Calculated 117 mg/dl; Potassium 4.4 mmol/L (3.3-5.1); Sodium 141 mmol/L (135-145); Total Protein 6.8 g/dL (6.5-8.0); Triglycerides 95 mg/dL
[2021-12-01 14:18] LABS: Prostate Specific Antigen Scr 1.27 ng/mL (<0.05-4.0); Thyroid Stimulating Hormone 0.86 uIU/mL (0.32-4.0)
== END 2021-12-01 11:34 | disposition home or self-care (01) ==
LOC: HO.LAB 11:33
PROVIDERS: PCP Internal Medicine; Visit Provider Internal Medicine
DX: Z00.00 Encounter for general adult medical examination without abnormal findings (principal); Z13.0 Encounter for screening for diseases of the blood and blood-forming organs and certain disorders involving the immune mechanism; Z12.5 Encounter for screening for malignant neoplasm of prostate
CPT/HCPCS: 36415; 80053; 80061; 84153; 84443; 85025

== ENCOUNTER 2023-05-30 09:49 | Outpatient (AMB) | payer MEDICARE, SELFPAY ==
[2023-05-30 09:51] VITALS: BP 118/62; PULSE 62; BMI 23.2
--- NOTE | 2023-05-30 09:51 | A.OFFPC_ITS ---
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 Practitioner: Not Required per policy Accompanied by: Self / Same As Patient Allergies No Known Allergies Allergy (Verified 05/30/23 09:51) Medication List - Last Reconciled 05/30/23 by Paramjit Lyn MD No Known Home Meds Tobacco use date assessed: 05/30/23 Fall risk assessment: No Falls in past year Last assessed Fall Risk: 05/30/23 Dental Screening Dental Screen Date: 05/30/23 Did you have a dental visit in the last 12 months?: No Did you have a dental problem in the last 6 months where you did not have access to dental care?: No Was dental information given to patient?: Patient has dentist HPI Annual Physical HPI Details healthy although he smokes [facility] Medical History Pre-op exam Arthritis No known health problems Surgical History Hx of cataract surgery H/O hernia repair Family History Mother No problems noted. Father No problems noted. Social History Housing: House Alcohol intake: never Patient Tobacco Use Status: Current everyday Tobacco user Tobacco use type: Cigarette Cigarettes Per Day: 4 e-Cigarette/Vaping Use: Never Used Second Hand Smoke Exposure: No service: No Current occupational status: retired Cognitive needs: No Hearing needs: No Vision needs: Yes (reading glasses) Questionnaire PHQ-9 Over the last 2 weeks, how often have you been bothered by any of the following problems? 1. Little interest or pleasure in doing things: not at all 2. Feeling down, depressed, or hopeless: not at all 3. Trouble falling or staying asleep, or sleeping too much: not at all 4. Feeling tired or having little energy: not at all 5. Poor appetite or overeating: not at all 6. Feeling bad about yourself - or that you are a failure or have let yourself or your family down: not at all 7. Trouble concentrating on things, such as reading the newspaper or watching television: not at all 8. Moving or speaking so slowly that other people could have noticed. Or the opposite - being so fidgety or restless that you have been moving around a lot more than usual: not at all 9. Thoughts that you would be better off or of hurting yourself in some way: not at all Total score: 0 Depression Screening Interpretation: Negative 00655 - PHQ-9 Billing: Yes Source: Developed by Drs. Deacon Walsh, Staci Kaplan, Sd Tsang and colleagues, with an educational see from [employer]. Thrive Questionnaire Date Thrive assessed: 05/30/23 I am a: Patient What is your living situation today?: I have a steady place to live Within the past 12 months, did the food you bought not last and you didn't have the money to get more?: Never true Within the past 12 months, did you worry whether your food would run out before you got money to buy more?: Never true Do you have trouble paying for medicines?: No Do you have trouble getting transportation to medical appointments?: No Do you have trouble paying your heating and electricity bill?: No Do you have trouble taking care of your child, family member or friend?: No Do you have trouble with day-to-day activities such as bathing, preparing meals, shopping, managing finances, etc.?: No Are you currently unemployed and looking for a job?: No Are you interested in more education?: No Please select the resources that you would like help with: None AUDIT C Alcohol Use Questionnaire (AUDIT-C) 1. How often do you have a drink containing alcohol?: Never Total Score: 0 Score Reviewed/Action Taken: Yes JARED-7 AMB Questionnaire JARED-7 Date JARED - 7 assessed: 05/30/23 Feeling nervous, anxious, or on edge: 0 = Not at all Not being able to stop or control worryin = Not at all Worrying too much about different things: 0 = Not at all Trouble relaxin = Not at all Being so restless that it is hard to sit still: 0 = Not at all Becoming easily annoyed or irritable: 0 = Not at all Feeling afraid as if something awful might happen: 0 = Not at all Total JARED-7 score (0-4 normal; 5-9 mild; 10-14 moderate; 15-21 severe): 0 Source: Developed by Drs. Deacon Walsh, Staci Kaplan, Sd Tsang and colleagues, with an educational see from [employer]. JARED-7 Assessment Billing JARED-7 Assessment Tool: JARED-7 Assessment 47689 Review of Systems Const Denies chills, Denies fatigue, Denies headache(s) and Denies weight loss Eyes Denies change in vision, Denies diplopia and Denies eye pain ENT Denies vertigo, Denies dizziness, Denies headache(s) and Denies nasal discharge Card Denies chest pain, Denies rapid heart rate and Denies dyspnea on exertion Resp Denies chest congestion, Denies cough, Denies pain with cough and Denies dyspnea on exertion GI Denies abdominal pain, Denies hematochezia and Denies change in bowel habits Musc Denies myalgias, Denies arthralgias and Denies joint swelling Skin/Breast Denies lesions and Denies unusual bruising Neuro Denies vertigo, Denies dizziness, Denies headache(s) and Denies focal weakness Endo Denies fatigue Physical exam (Primary Care) Vital Signs: Last Vital Signs Pulse 62 05/30/23 09:51 BP 118/62 05/30/23 09:51 Oxygen Delivery Method Room Air 05/30/23 09:51 BMI result Body Mass Index 23.2 Tobacco/Smoking Status: Tobacco use Status Tobacco use date assessed 05/30/23 05/30/23 09:52 Patient Tobacco Use Status Current everyday Tobacco 05/30/23 09:52 Tobacco use type Cigarette 05/30/23 09:52 e-Cigarette/Vaping Use Never Used 05/30/23 09:52 Are you ready to quit: No Tobacco cessation counseling provided: Yes Number of minutes spent counselin CPT code: 47459 - 4-10 Minutes PHQ-9: PHQ-9 Score PHQ-9: Total score 0 05/30/23 09:52 Depression Screening Interpretation: Negative Thrive Assessment: Date of Thrive Assessment Date Thrive assessed 05/30/23 05/30/23 09:52 Advance Care Planning discussion: On file, no changes Forms completed: Health Care Proxy Const General: cooperative, healthy appearing and no acute distress Orientation/consciousness: oriented to person, oriented to place and oriented to time HENMT Head: Yes normal to inspection, Yes normocephalic and Yes atraumatic Mouth: Normal oral and palatal mucosa present and tongue normal Throat: Yes posterior oropharynx normal and Yes uvula midline Eyes General: appearance normal, both eyes and all related structures Neck Neck: Yes normal visual inspection, Yes full ROM and Yes no lymphadenopathy Thyroid: Thyroid normal Carotids: normal carotid upstroke Chest Chest palpation & inspection: normal inspection of the chest Resp Effort & Inspection: normal respiratory effort and able to speak in complete sentences Auscultation: clear to auscultation bilaterally Cardio Jugular venous distension: no JVD Palpation: normal PMI Rate: regular rate Rhythm: regular rhythm Heart sounds: S1 normal heart sound present and S2 normal heart sound present GI Inspection: Yes normal to inspection Palpation (GI): Soft to palpation and No hepatosplenomegaly present Auscultation: normal bowel sounds General: Yes no CVA tenderness Back/Spine/Pelvis Back: no CVA tenderness Skin General skin exam: no rashes or lesions noted Neuro General: oriented to person, oriented to place and oriented to time Extrem General: Yes normal to inspection and Yes full ROM Assessment and Plan Assessment & Plan (1) Physical exam: Code(s): Z00.00 - Encounter for general adult medical examination without abnormal findings Plan: do labs (2) Smoker: Code(s): F17.200 - Nicotine dependence, unspecified, uncomplicated Plan: as above Orders: Orders Lipid Panel Today E78.5 - Hyperlipidemia, unspecified Complete Blood Count Auto Diff Today D64.9 - Anemia, unspecified Prostate Specific Antigen Scr Today Z00.00 - Encounter for general adult medical examination without abnormal findings Comprehensive [place]. Panel Fast Today N28.9 - Disorder of kidney and ureter, unspecified Coding Level of Care Code Est Pt Prev Care >65y(04312) Diagnoses Physical exam Z00.00 Smoker F17.200 Additional Codes Vital Signs *Quality* - CPT code: 06858 - 4-10 Minutes ([id number]) JARED-7 Assessment Billing - JARED-7 Assessment Tool: JARED-7 Assessment 39020 ([id number]) Vital Signs *Quality* - Advance Care Planning discussion: On file, no changes ([id number])
== END 2023-05-30 10:10 | disposition home or self-care (01) ==
PROVIDERS: PCP Internal Medicine; Visit Provider Internal Medicine
DX: Z00.00 Encounter for general adult medical examination without abnormal findings (principal); F17.210 Nicotine dependence, cigarettes, uncomplicated
CPT/HCPCS: 1123F; 99397

== ENCOUNTER 2023-05-31 08:49 | Outpatient (REF) | payer MEDICARE, SELFPAY ==
[2023-05-31 09:18] LABS: MANUAL DIFF FLAG NO
[2023-05-31 10:31] LABS: Basophils Absolute Auto 0.1 X10*3/uL (0.0-0.2); Basophils Percent Auto 0.7 % (0-2); Eosinophils Absolute Auto 0.2 X10*3/uL (0.0-0.4); Eosinophils Percent Auto 1.9 % (0-4); Hematocrit 47.3 % (42.0-52.0); Hemoglobin 15.8 g/dl (14.0-18.0); Imm Gran Abs Auto 0.04 X10*3/uL (0.00-0.03); Imm Gran Pct Auto 0.5 % (0.0-0.4); Lymphocytes Absolute Auto 1.8 X10*3/uL (1.2-4.9); Lymphocytes Percent Auto 21.7 % (20-40); Mean Corpuscular HGB Conc 33.4 g/dl (31.0-36.0); Mean Corpuscular Hemoglobin 31.4 pg (27.0-33.0); Mean Platelet Volume 11.1 fL (9.4-12.4); Monocytes Absolute Auto 0.6 X10*3/uL (0.1-1.2); Monocytes Percent Auto 6.8 % (2-11); Neutrophils Absolute Auto 5.5 x10*3/uL (2.0-8.3); Neutrophils Percent Auto 68.4 % (45-73); Platelet Count 258 X10*3/uL (160-400); Red Blood Count 5.03 X10*6/uL (4.60-5.80); White Blood Count 8.1 X10*3/uL (4.8-10.8)
[2023-05-31 11:12] LABS: Alanine Aminotransferase 13 U/L (0-40); Albumin Level 4.3 g/dL (3.5-5.0); Alkaline Phosphatase 127 U/L (39-117); Anion Gap 13 (12-20); Aspartate Amino Transferase 20 U/L (5-37); Bilirubin Total 0.8 mg/dL (0.0-1.0); Blood Urea Nitrogen 16 mg/dL (9-16); Calcium 9.7 mg/dL (8.4-10.2); Carbon Dioxide 26 mmol/L (22-29); Chloride 106 mmol/L (96-108); Cholesterol 184 mg/dL (<200); Estimated Glomerular Filt Rate > 60; Glucose Fasting 110 mg/dL (60-99); HDL Cholesterol 56 mg/dL (>40); LDL Cholesterol Calculated 118 mg/dL (<100); Potassium 5.9 mmol/L (3.3-5.1); Sodium 139 mmol/L (135-145); Total Protein 7.5 g/dL (6.5-8.0); Triglycerides 54 mg/dL (<150)
[2023-05-31 11:16] LABS: Prostate Specific Antigen Scr 1.18 ng/mL (<0.05-4.0)
== END 2023-05-31 08:50 | disposition home or self-care (01) ==
LOC: HO.LAB 08:49
PROVIDERS: PCP Internal Medicine; Visit Provider Internal Medicine
DX: Z00.00 Encounter for general adult medical examination without abnormal findings (principal); E78.5 Hyperlipidemia, unspecified; D64.9 Anemia, unspecified; N28.9 Disorder of kidney and ureter, unspecified; Z12.5 Encounter for screening for malignant neoplasm of prostate
CPT/HCPCS: 36415; 80053; 80061; 84153; 85025

== ENCOUNTER 2024-06-02 12:52 | Outpatient (AMB) | payer MEDICARE, SELFPAY ==
[2024-06-02 12:57] VITALS: BP 136/74; PULSE 69; O2SAT 97; BMI 23.9
--- NOTE | 2024-06-02 12:57 | MHC.PC.OV ---
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 by: Self / Same As Patient Allergies No Known Allergies Allergy (Verified 06/02/24 12:57) Medication List - Last Reconciled 06/02/24 by Paramjit Lny MD No Known Home Meds Tobacco use date assessed: 06/02/24 Fall risk assessment: No Falls in past year Last assessed Fall Risk: 06/02/24 Dental Screening Dental Screen Date: 06/02/24 Did you have a dental visit in the last 12 months?: No Did you have a dental problem in the last 6 months where you did not have access to dental care?: No Was dental information given to patient?: Patient declined HPI Annual Physical HPI Details healthy [facility] Medical History Pre-op exam Arthritis No known health problems Surgical History Hx of cataract surgery H/O hernia repair Family History Mother No problems noted. Father No problems noted. Social History Housing: House Alcohol intake: never Patient Tobacco Use Status: Current everyday Tobacco user Tobacco use type: Cigarette Cigarettes Per Day: 4 e-Cigarette/Vaping Use: Never Used Second Hand Smoke Exposure: No service: No Current occupational status: retired Cognitive needs: No Hearing needs: No Vision needs: Yes (reading glasses) Questionnaire PHQ-9 Over the last 2 weeks, how often have you been bothered by any of the following problems? 1. Little interest or pleasure in doing things: not at all 2. Feeling down, depressed, or hopeless: not at all 3. Trouble falling or staying asleep, or sleeping too much: not at all 4. Feeling tired or having little energy: not at all 5. Poor appetite or overeating: not at all 6. Feeling bad about yourself - or that you are a failure or have let yourself or your family down: not at all 7. Trouble concentrating on things, such as reading the newspaper or watching television: not at all 8. Moving or speaking so slowly that other people could have noticed. Or the opposite - being so fidgety or restless that you have been moving around a lot more than usual: not at all 9. Thoughts that you would be better off or of hurting yourself in some way: not at all Total score: 0 Depression Screening Interpretation: Negative Depression Screening Done: Yes 94773 - PHQ-9 Billing: Yes Source: Developed by Drs. Deacon Walsh, Staci Kaplan, Sd Tsang and colleagues, with an educational see from [employer]. Thrive Questionnaire Date Thrive assessed: 06/02/24 I am a: Patient What is your living situation today?: I have a steady place to live Within the past 12 months, did the food you bought not last and you didn't have the money to get more?: Never true Within the past 12 months, did you worry whether your food would run out before you got money to buy more?: Never true Do you have trouble paying for medicines?: No Do you have trouble getting transportation to medical appointments?: No Do you have trouble paying your heating and electricity bill?: No Do you have trouble taking care of your child, family member or friend?: No Do you have trouble with day-to-day activities such as bathing, preparing meals, shopping, managing finances, etc.?: No Are you currently unemployed and looking for a job?: No Are you interested in more education?: No Please select the resources that you would like help with: None THRIVE Score: 0 AUDIT C Alcohol Use Questionnaire (AUDIT-C) 1. How often do you have a drink containing alcohol?: Never Total Score: 0 Score Reviewed/Action Taken: Yes JARED-7 AMB Questionnaire JARED-7 Date JARED - 7 assessed: 06/02/24 Feeling nervous, anxious, or on edge: 0 = Not at all Not being able to stop or control worryin = Not at all Worrying too much about different things: 0 = Not at all Trouble relaxin = Not at all Being so restless that it is hard to sit still: 0 = Not at all Becoming easily annoyed or irritable: 0 = Not at all Feeling afraid as if something awful might happen: 0 = Not at all Total JARED-7 score (0-4 normal; 5-9 mild; 10-14 moderate; 15-21 severe): 0 Source: Developed by Drs. Deacon Walsh, Staci Kaplan, Sd Tsang and colleagues, with an educational see from [employer]. JARED-7 Assessment Billing JARED-7 Assessment Tool: JARED-7 Assessment 66925 Review of Systems Const Denies chills, Denies fatigue, Denies headache(s) and Denies weight loss Eyes Denies change in vision, Denies diplopia and Denies eye pain ENT Denies vertigo, Denies dizziness, Denies headache(s) and Denies nasal discharge Card Denies chest pain, Denies rapid heart rate and Denies dyspnea on exertion Resp Denies chest congestion, Denies cough, Denies pain with cough and Denies dyspnea on exertion GI Denies abdominal pain, Denies hematochezia and Denies change in bowel habits Musc Denies myalgias, Denies arthralgias and Denies joint swelling Skin/Breast Denies lesions and Denies unusual bruising Neuro Denies vertigo, Denies dizziness, Denies headache(s) and Denies focal weakness Endo Denies fatigue Physical exam (Primary Care) Vital Signs: Last Vital Signs Pulse 69 06/02/24 12:57 BP 136/74 06/02/24 12:57 Pulse Ox 97 06/02/24 12:57 Oxygen Delivery Method Room Air 06/02/24 12:57 BMI result Body Mass Index 23.9 Tobacco/Smoking Status: Tobacco use Status Tobacco use date assessed 06/02/24 06/02/24 13:02 Patient Tobacco Use Status Current everyday Tobacco 06/02/24 13:02 Tobacco use type Cigarette 06/02/24 13:02 e-Cigarette/Vaping Use Never Used 06/02/24 13:02 PHQ-9: PHQ-9 Score PHQ-9: Total score 0 06/02/24 13:02 Depression Screening Interpretation: Negative Thrive Assessment: Date of Thrive Assessment Date Thrive assessed 06/02/24 06/02/24 13:02 Const General: cooperative, healthy appearing and no acute distress Orientation/consciousness: oriented to person, oriented to place and oriented to time [facility] Head: Yes normal to inspection, Yes normocephalic and Yes atraumatic Mouth: Normal oral and palatal mucosa present and tongue normal Throat: Yes posterior oropharynx normal and Yes uvula midline Eyes General: appearance normal, both eyes and all related structures Neck Neck: Yes normal visual inspection, Yes full ROM and Yes no lymphadenopathy Thyroid: Thyroid normal Carotids: normal carotid upstroke Chest Chest palpation & inspection: normal inspection of the chest Resp Effort & Inspection: normal respiratory effort and able to speak in complete sentences Auscultation: clear to auscultation bilaterally Cardio Jugular venous distension: no JVD Palpation: normal PMI Rate: regular rate Rhythm: regular rhythm Heart sounds: S1 normal heart sound present and S2 normal heart sound present GI Inspection: Yes normal to inspection Palpation (GI): Soft to palpation and No hepatosplenomegaly present Auscultation: normal bowel sounds General: Yes no CVA tenderness Back/Spine/Pelvis Back: no CVA tenderness Skin General skin exam: no rashes or lesions noted Neuro General: oriented to person, oriented to place and oriented to time Extrem General: Yes normal to inspection and Yes full ROM Assessment and Plan Assessment & Plan (1) Physical exam: Code(s): Z00.00 - Encounter for general adult medical examination without abnormal findings Plan: do labs Orders: Orders Comprehensive [place]. Panel Fast Today Z13.9 - Encounter for screening, unspecified Complete Blood Count Auto Diff Today Z13.0 - Encounter for screening for diseases of the blood and blood-forming organs and certain disorders involving the immune mechanism Lipid Panel Today Z13.220 - Encounter for screening for lipoid disorders Thyroid Stimulating Hormone Today Z13.29 - Encounter for screening for other suspected endocrine disorder Referrals Ear/Nose/Throat Referral H61.20 - Impacted cerumen, unspecified ear Coding Level of Care Code Est Pt Prev Care >65y(39335) Diagnoses Physical exam Z00.00 Additional Codes JARED-7 Assessment Billing - JARED-7 Assessment Tool: JARED-7 Assessment 71632 ([id number])
== END 2024-06-02 13:11 | disposition home or self-care (01) ==
PROVIDERS: PCP Internal Medicine; Visit Provider Internal Medicine
DX: Z00.00 Encounter for general adult medical examination without abnormal findings (principal)

== ENCOUNTER → 2024-06-02 12:52 | Outpatient (BNVA) | payer MEDICARE, SELFPAY | PROVIDERS: PCP Internal Medicine; Visit Provider Internal Medicine | DX: Z00.01 Encounter for general adult medical examination with abnormal findings (principal); H61.20 Impacted cerumen, unspecified ear | CPT/HCPCS: 96127 ==

== ENCOUNTER 2024-06-03 10:04 | Outpatient (REF) | payer MEDICARE, SELFPAY ==
[2024-06-03 10:19] LABS: MANUAL DIFF FLAG NO
[2024-06-03 10:47] LABS: Basophils Percent Auto 0.5 % (0-2); Eosinophils Absolute Auto 0.2 X10*3/uL (0.0-0.4); Hematocrit 49.2 % (42.0-52.0); Hemoglobin 16.3 g/dl (14.0-18.0); Imm Gran Abs Auto 0.03 X10*3/uL (0.00-0.03); Imm Gran Pct Auto 0.4 % (0.0-0.4); Lymphocytes Absolute Auto 2.5 X10*3/uL (1.2-4.9); Mean Corpuscular HGB Conc 33.1 g/dl (31.0-36.0); Mean Corpuscular Hemoglobin 30.8 pg (27.0-33.0); Mean Platelet Volume 10.4 fL (9.4-12.4); Monocytes Absolute Auto 0.5 X10*3/uL (0.1-1.2); Monocytes Percent Auto 6.5 % (2-11); Neutrophils Absolute Auto 4.7 x10*3/uL (2.0-8.3); Neutrophils Percent Auto 59.6 % (45-73); Platelet Count 251 X10*3/uL (160-400); Red Blood Count 5.29 X10*6/uL (4.60-5.80); Red Cell Distribution Width 12.7 % (11.0-16.0); White Blood Count 7.9 X10*3/uL (4.8-10.8)
[2024-06-03 11:20] LABS: Alanine Aminotransferase 12 U/L (0-40); Albumin Level 4.3 g/dL (3.5-5.0); Alkaline Phosphatase 124 U/L (39-117); Anion Gap 9 (12-20); Aspartate Amino Transferase 15 U/L (5-37); Bilirubin Total 0.8 mg/dL (0.0-1.0); Blood Urea Nitrogen 14 mg/dL (9-16); Calcium 9.6 mg/dL (8.4-10.2); Carbon Dioxide 29 mmol/L (22-29); Chloride 108 mmol/L (96-108); Cholesterol 194 mg/dL (<200); Estimated Glomerular Filt Rate > 60; Glucose Fasting 106 mg/dL (60-99); HDL Cholesterol 49 mg/dL (>40); LDL Cholesterol Calculated 127 mg/dL (<100); Potassium 4.9 mmol/L (3.3-5.1); Sodium 141 mmol/L (135-145); Total Protein 7.4 g/dL (6.5-8.0); Triglycerides 90 mg/dL (<150)
[2024-06-03 11:37] LABS: Thyroid Stimulating Hormone 2.36 uIU/mL (0.32-4.0)
== END 2024-06-03 10:05 | disposition home or self-care (01) ==
LOC: HO.LAB 10:04
PROVIDERS: PCP Internal Medicine; Visit Provider Internal Medicine
DX: Z13.0 Encounter for screening for diseases of the blood and blood-forming organs and certain disorders involving the immune mechanism (principal); Z13.220 Encounter for screening for lipoid disorders; Z13.29 Encounter for screening for other suspected endocrine disorder; Z13.9 Encounter for screening, unspecified
CPT/HCPCS: 36415; 80053; 80061; 84443; 85025

== ENCOUNTER 2025-02-16 14:20 | Outpatient (AMB) | payer MEDICARE, SELFPAY ==
--- NOTE | 2025-02-16 14:24 | A.OFFPC_ITS ---
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 Accompanied by: Self / Same As Patient Allergies No Known Allergies Allergy (Verified 02/16/25 14:40) Medication List - Last Reconciled 02/16/25 by LUDA Sibley No Known Home Meds Tobacco use date assessed: 02/16/25 Fall risk assessment: No Falls in past year Last assessed Fall Risk: 02/16/25 Dental Screening Dental Screen Date: 02/16/25 Did you have a dental visit in the last 12 months?: No Did you have a dental problem in the last 6 months where you did not have access to dental care?: No Was dental information given to patient?: No HPI CRESENCIO Dr Lyn HPI Details The patient is a 69-year-old male presenting for transition of care from Dr. Lyn, who retireda routine . He reports a smoking history since adolescence, around a 56 year history, with recent daily consumption of up to five cigarettes/day. He was advised about the potential cardiovascular implications related to his lipid profile, which showed slightly elevated cholesterol levels. Cataracts are present in both eyes, slightly affecting vision, particularly in the left eye, he has a floater, with no surgical history or planned intervention currently. Shortness of breath is primarily exertional, with no significant respiratory distress or other alarming symptoms, indicating stability over recent years. The patient shares a past occurrence of neck arthritis, which had been effectively managed with Tylenol, with no current active symptoms for about 5 months now. Gastroesophageal reflux symptoms are controlled with [id number] medication if food intake is not timed appropriately before sleep. The patient also reflects on a resolved history of migraines with no recent episodes. Overall, the reported concerns are stable or resolved, with ongoing management in place for preventive health measures. He was evaluated by a neurologist but didn't have start the prescribed medication because the migraine subsided. The patient reports that he had a Cologuard test done on 01/11/25 and this was normal. [facility] Medical History Pre-op exam Arthritis No known health problems Surgical History Hx of cataract surgery H/O hernia repair Family History Mother No problems noted. Father No problems noted. Social History Housing: House Alcohol intake: never Patient Tobacco Use Status: Current everyday Tobacco user Tobacco use type: Cigarette Cigarette Packs Per Day: 0.2 Cigarettes Per Day: 4 e-Cigarette/Vaping Use: Never Used Second Hand Smoke Exposure: No service: No Current occupational status: retired Cognitive needs: No Hearing needs: No Vision needs: Yes (reading glasses) Questionnaire PHQ-9 Over the last 2 weeks, how often have you been bothered by any of the following problems? 1. Little interest or pleasure in doing things: not at all 2. Feeling down, depressed, or hopeless: not at all 3. Trouble falling or staying asleep, or sleeping too much: several days 4. Feeling tired or having little energy: several days 5. Poor appetite or overeating: not at all 6. Feeling bad about yourself - or that you are a failure or have let yourself or your family down: not at all 7. Trouble concentrating on things, such as reading the newspaper or watching television: not at all 8. Moving or speaking so slowly that other people could have noticed. Or the opposite - being so fidgety or restless that you have been moving around a lot more than usual: not at all 9. Thoughts that you would be better off or of hurting yourself in some way: not at all Total score: 2 Depression Screening Interpretation: Negative Depression Screening Done: Yes 83354 - PHQ-9 Billing: Yes Source: Developed by Drs. Deacon Walsh, Staci Kaplan, Sd Tsang and colleagues, with an educational see from [employer]. Thrive Questionnaire Date Thrive assessed: 02/16/25 I am a: Patient What is your living situation today?: I have a steady place to live Within the past 12 months, did the food you bought not last and you didn't have the money to get more?: Never true Within the past 12 months, did you worry whether your food would run out before you got money to buy more?: Never true Do you have trouble paying for medicines?: No Do you have trouble getting transportation to medical appointments?: No Do you have trouble paying your heating and electricity bill?: No Do you have trouble taking care of your child, family member or friend?: No Do you have trouble with day-to-day activities such as bathing, preparing meals, shopping, managing finances, etc.?: No Are you currently unemployed and looking for a job?: No Are you interested in more education?: No Please select the resources that you would like help with: None Currently or been in a relationship where the following occur: No concerns reported THRIVE Score: 0 AUDIT C Alcohol Use Questionnaire (AUDIT-C) 1. How often do you have a drink containing alcohol?: Never 3. How often do you have six or more drinks on one occasion?: Never Total Score: 0 Score Reviewed/Action Taken: No JARED-7 AMB Questionnaire JARED-7 Date JARED - 7 assessed: 02/16/25 Feeling nervous, anxious, or on edge: 0 = Not at all Not being able to stop or control worryin = Not at all Worrying too much about different things: 0 = Not at all Trouble relaxin = Not at all Being so restless that it is hard to sit still: 0 = Not at all Becoming easily annoyed or irritable: 0 = Not at all Feeling afraid as if something awful might happen: 0 = Not at all Total JARED-7 score (0-4 normal; 5-9 mild; 10-14 moderate; 15-21 severe): 0 Source: Developed by Drs. Deacon Walsh, Staci Kaplan, Sd Tsang and colleagues, with an educational see from [employer]. JARED-7 Assessment Billing JARED-7 Assessment Tool: JARED-7 Assessment 60981 Review of Systems Const Denies headache(s) Eyes Reports floaters (left eye-hx of bilateral cataract) and Denies loss of vision ENT Denies vertigo, Denies dizziness, Denies headache(s), Reports neck pain (hx of arthritis in the neck, no pain for 5 months now) and Denies sore throat Card Denies chest pain, Denies leg edema, Denies lightheadedness and Reports dyspnea on exertion Resp Denies cough, Denies hemoptysis, Reports dyspnea on exertion and Denies wheezing GI Denies abdominal pain, Denies melena, Denies constipation, Reports heartburn (with certain foods, or eating close to bedtime), Denies diarrhea and Denies vomiting Denies dysuria, Denies urinary frequency and Denies urinary urgency Musc Denies arthralgias, Denies joint swelling, Reports neck pain (hx of arthritis in the neck, no pain for 5 months now), Denies numbness and Denies tingling Skin/Breast Denies lesions and Denies rash Neuro Denies Abnormal speech present, Denies behavioral changes, Denies vertigo, Denies dizziness, Denies headache(s), Denies loss of vision, Denies memory loss, Denies numbness and Denies tingling Psych Denies anxiety, Denies behavioral changes, Denies depression, Denies memory loss and Denies panic attacks Trae/Lymph Denies easy bleeding and Denies easy bruising Aller/Immun Denies wheezing Physical exam (Primary Care) Vital Signs: Last Vital Signs Temp 99.1 F 02/16/25 14:25 Pulse 69 02/16/25 14:25 Resp 18 02/16/25 14:25 BP 126/74 02/16/25 14:25 Pulse Ox 96 02/16/25 14:25 Oxygen Delivery Method Room Air 02/16/25 14:25 BMI result Body Mass Index 24.2 Tobacco/Smoking Status: Tobacco use Status Tobacco use date assessed 02/16/25 02/16/25 14:33 Patient Tobacco Use Status Current everyday Tobacco 02/16/25 14:33 Tobacco use type Cigarette 02/16/25 14:33 e-Cigarette/Vaping Use Never Used 02/16/25 14:33 PHQ-9: PHQ-9 Score PHQ-9: Total score 2 02/16/25 14:42 Depression Screening Interpretation: Negative Thrive Assessment: Date of Thrive Assessment Date Thrive assessed 02/16/25 02/16/25 14:33 Currently or been in a relationship where the following occur: No concerns reported Const General: healthy appearing, no acute distress, alert and awake Nutritional Appearance: well nourished Orientation/consciousness: oriented to person, oriented to place and oriented to time HENMT Ears: TM's normal bilaterally General nose exam: Normal nasal mucous membranes and turbinates present Eyes Conjunctivae: conjunctivae normal Sclerae: sclerae normal Pupils: Equal, round and reactive pupils present Neck Neck: Yes no lymphadenopathy and Yes no JVD Thyroid: Thyroid normal Carotids: no bruits Resp Effort & Inspection: normal respiratory effort and not tachypneic Auscultation: no crackles, no rales, no rhonchi and no wheezes Cardio Rate: regular rate Rhythm: regular rhythm Heart sounds: no murmurs and normal S1 and S2 GI Palpation (GI): Soft to palpation, nontender, no hepatomegaly and no splenomegaly Auscultation: normal bowel sounds Back/Spine/Pelvis Cervical Spine: No Cervical spine tenderness Skin General skin exam: no rashes or lesions noted and dry skin Neuro General: oriented to person, oriented to place and oriented to time Cranial nerves: Yes Equal, round and reactive pupils present Speech: No Abnormal speech present Gait exam (Neuro): Normal gait present Motor exam (neuro): no tremor noted Extrem Right upper extremity: full ROM Left upper extremity: full ROM Right lower extremity: full ROM; no edema Left lower extremity: full ROM; no edema Psych Mental Status: mental status grossly normal Speech and movement: Normal speech and movement present Affect: normal affect Attitude: cooperative Thought process: Normal thought process present Coding Level of Care Code Est Pt Level 4 (66054) Diagnoses Cataract of both eyes, unspecified cataract type H26.9 Cataract type: unspecified Vitreous floaters of left eye H43.392 Laterality: left Neck pain M54.2 Shortness of breath R06.02 Smoker F17.200 Pure hypercholesterolemia E78.00 Hyperlipidemia type: pure hypercholesterolemia Elevated alkaline phosphatase level R74.8 Additional Codes JARED-7 Assessment Billing - JARED-7 Assessment Tool: JARED-7 Assessment 55167 ([id number]) PHQ-9 - 26533 - PHQ-9 Billing: Yes ([id number]) Time Spent (min) 40 Assessment & Plan Assessment & Plan (1) Cataracts, both eyes: Code(s): H26.9 - Unspecified cataract Category: Medical Qualifiers: Cataract type: unspecified Qualified Code(s): H26.9 - Unspecified cataract Plan: hx of cataract, no obvious decreased in vision noted by patient follow with ophthalmology as scheduled, Dr. Costello (2) Floaters in visual field: Code(s): H43.399 - Other vitreous opacities, unspecified eye Category: Medical Qualifiers: Laterality: left Qualified Code(s): H43.392 - Other vitreous opacities, left eye Plan: reports a floater in left eye-hx of cataract reports that Dr. Costello office was booked, so he was evaluated at [facility] in [facility] he was told that his eyes were fine and that there was nothing they could do about his floater Follow up with Ophthalmology as scheduled, Mabel Mccloud in [place] (3) Neck pain: Code(s): M54.2 - Cervicalgia Category: Medical Plan: hx of neck that the patient has not experience any pain in 5 months MRI of cervical on 01/18/21 showed moderate multilevel degenerative spondyloarthropathy of the cervical spine, most notably, there are mild spinal canal stenosis at C5-C6 and C6-C7. Moderate to severe neural foraminal stenosis from C2-C7. Will continue to monitor for any resurgence of symptoms. (4) Shortness of breath: Code(s): R06.02 - Shortness of breath Category: Medical Plan: Exertional dyspnea that resolves with rest No other associated symptoms chronic smoking for over 56 years he has been cutting down and is only smoking about 6/day Chest x-ray on 12/12/2020 showed mildly coarsened interstitial markings bilaterally without any focal abnormality. Consistent with COPD without significant interval change. Suggesting stable chronic disease compared to prior imaging. Given the patient's smoking history, he is a candidate for lung cancer screening. We will put in a referral (5) Smoker: Code(s): F17.200 - Nicotine dependence, unspecified, uncomplicated Category: Social Hx Plan: Encouraged smoking cessation (6) HLD (hyperlipidemia): Code(s): E78.5 - Hyperlipidemia, unspecified Category: Medical Qualifiers: Hyperlipidemia type: pure hypercholesterolemia Qualified Code(s): E78.0 0 - Pure hypercholesterolemia, unspecified Plan: tri 90, t-chol 194, ldl 127, hdl 49, 06/03/2025 Discussed lifestyle modifications including dietary changes and physical activity We will repeat lipid panel and advise (7) Elevated alkaline phosphatase level: Code(s): R74.8 - Abnormal levels of other serum enzymes Category: Medical Plan: Alkaline phosphatase 124, 05/2025 We will repeat an advice Plan I addressed the patient's ongoing health concerns with a focus on tobacco cessation, cholesterol management through dietary changes, and preventive health measures such as lung cancer screening. His exertional shortness of breath will be monitored, with the option of using a rescue inhaler if necessary. An ophthalmology appointment is scheduled for further evaluation of vision changes due to cataracts. Follow-up labs for cholesterol will also be reviewed during his next check-up. We emphasized continued lifestyle modifications to support his overall health. Patient was informed and verbally consented to the use of an ambient scribe for clinic note documentation during this visit. Orders: Orders Lipid Panel 02/17/25 F17.200 - Nicotine dependence, unspecified, uncomplicated, H26.9 - Unspecified cataract, R06.02 - Shortness of breath, H43.399 - Other vitreous opacities, unspecified eye UA CC w/rflx Micro + Cult 02/17/25 F17.200 - Nicotine dependence, unspecified, uncomplicated, H26.9 - Unspecified cataract, R06.02 - Shortness of breath, H43.399 - Other vitreous opacities, unspecified eye TSH reflex Free T4 02/17/25 F17.200 - Nicotine dependence, unspecified, uncomplicated, H26.9 - Unspecified cataract, R06.02 - Shortness of breath, H43.399 - Other vitreous opacities, unspecified eye Vitamin D 25-OH Total 02/17/25 F17.200 - Nicotine dependence, unspecified, uncomplicated, H26.9 - Unspecified cataract, R06.02 - Shortness of breath, H43.399 - Other vitreous opacities, unspecified eye CRP High Sensitivity 02/17/25 F17.200 - Nicotine dependence, unspecified, uncomplicated, H26.9 - Unspecified cataract, R06.02 - Shortness of breath, H43.399 - Other vitreous opacities, unspecified eye Complete Blood Count Auto Diff 02/17/25 F17.200 - Nicotine dependence, unspecified, uncomplicated, H26.9 - Unspecified cataract, R06.02 - Shortness of breath, H43.399 - Other vitreous opacities, unspecified eye Comprehensive [place]. Panel Fast 02/17/25 F17.200 - Nicotine dependence, unspecified, uncomplicated, H26.9 - Unspecified cataract, R06.02 - Shortness of breath, H43.399 - Other vitreous opacities, unspecified eye Hemoglobin A1c 02/17/25 F17.200 - Nicotine dependence, unspecified, uncomplicated, H26.9 - Unspecified cataract, R06.02 - Shortness of breath, H43.399 - Other vitreous opacities, unspecified eye Erythrocyte Sedimentation Rate 02/17/25 F17.200 - Nicotine dependence, unspecified, uncomplicated, H26.9 - Unspecified cataract, R06.02 - Shortness of breath, H43.399 - Other vitreous opacities, unspecified eye Referrals Thoracic/General Surgery Referral F17.200 - Nicotine dependence, unspecified, uncomplicated
[2025-02-16 14:25] VITALS: BP 126/74; PULSE 69; RESP 18; TEMP 37.3; O2SAT 96; BMI 24.2
== END 2025-02-16 15:09 | disposition home or self-care (01) ==
LOC: HO.HMCH 14:21
PROVIDERS: PCP Internal Medicine
DX: H26.9 Unspecified cataract (principal); H43.392 Other vitreous opacities, left eye; M54.2 Cervicalgia; R06.02 Shortness of breath; F17.200 Nicotine dependence, unspecified, uncomplicated; E78.00 Pure hypercholesterolemia, unspecified; R74.8 Abnormal levels of other serum enzymes

== ENCOUNTER → 2025-02-16 14:20 | Outpatient (BNVA) | payer MEDICARE, SELFPAY | PROVIDERS: PCP Internal Medicine | DX: H26.9 Unspecified cataract (principal); H43.392 Other vitreous opacities, left eye; M54.2 Cervicalgia; R06.02 Shortness of breath; E78.00 Pure hypercholesterolemia, unspecified; R74.8 Abnormal levels of other serum enzymes; F17.200 Nicotine dependence, unspecified, uncomplicated; Z71.6 Tobacco abuse counseling | CPT/HCPCS: 96127; 99212 ==

== ENCOUNTER 2025-02-17 07:51 | Outpatient (REF) | payer MEDICARE, SELFPAY ==
[2025-02-17 08:06] LABS: MANUAL DIFF FLAG NO
[2025-02-17 08:26] LABS: Basophils Percent Auto 0.5 % (0-2); Eosinophils Absolute Auto 0.2 X10*3/uL (0.0-0.4); Eosinophils Percent Auto 2.1 % (0-4); Hematocrit 46.1 % (42.0-52.0); Hemoglobin 15.3 g/dl (14.0-18.0); Imm Gran Abs Auto 0.03 X10*3/uL (0.00-0.03); Imm Gran Pct Auto 0.3 % (0.0-0.4); Lymphocytes Absolute Auto 2.7 X10*3/uL (1.2-4.9); Lymphocytes Percent Auto 31.4 % (20-40); Mean Corpuscular HGB Conc 33.2 g/dl (31.0-36.0); Mean Corpuscular Hemoglobin 30.4 pg (27.0-33.0); Mean Corpuscular Volume 91.5 fL (80.0-98.0); Monocytes Absolute Auto 0.7 X10*3/uL (0.1-1.2); Neutrophils Percent Auto 57.7 % (45-73); Platelet Count 234 X10*3/uL (160-400); Red Blood Count 5.04 X10*6/uL (4.60-5.80); Red Cell Distribution Width 12.5 % (11.0-16.0); White Blood Count 8.7 X10*3/uL (4.8-10.8)
[2025-02-17 08:33] LABS: Estimated Average Glucose 114 mg/dL; Hemoglobin A1C 149.6609 umol/L; Hemoglobin A1c % 5.6 % (<6.0)
[2025-02-17 08:58] LABS: Appearance Urine Clear; Color Urine Yellow; Glucose Urine UA Negative (Negative); Leukocyte Esterase Urine Negative (Negative); Nitrite Urine Negative (Negative); Urine Blood Negative (Negative); Urine Ketones Negative (Negative); Urine Protein Negative (Neg-Trace)
[2025-02-17 09:03] LABS: Alanine Aminotransferase 11 U/L (0-40); Albumin Level 4.5 g/dL (3.5-5.0); Alkaline Phosphatase 125 U/L (39-117); Anion Gap 11 (12-20); Aspartate Amino Transferase 21 U/L (5-37); Bilirubin Total 0.8 mg/dL (0.0-1.0); Blood Urea Nitrogen 17 mg/dL (9-16); Calcium 9.4 mg/dL (8.4-10.2); Carbon Dioxide 26 mmol/L (22-29); Chloride 107 mmol/L (96-108); Cholesterol 185 mg/dL (<200); Estimated Glomerular Filt Rate > 60; Glucose Fasting 99 mg/dL (60-99); HDL Cholesterol 48 mg/dL (>40); LDL Cholesterol Calculated 123 mg/dL (<100); Potassium 4.3 mmol/L (3.3-5.1); Sodium 140 mmol/L (135-145); Total Protein 7.1 g/dL (6.5-8.0); Triglycerides 73 mg/dL (<150)
[2025-02-17 09:21] LABS: TSH reflex Free T4 2.16 uIU/mL (0.32-4.0)
[2025-02-17 09:58] LABS: Erythrocyte Sedimentation Rate 5 MM/HR (0-15)
[2025-02-18 07:33] LABS: CRP High Sensitivity 1.6 mg/L
== END 2025-02-17 07:52 | disposition home or self-care (01) ==
LOC: HO.LAB 07:51
DX: F17.200 Nicotine dependence, unspecified, uncomplicated (principal); H26.9 Unspecified cataract; R06.02 Shortness of breath; H43.399 Other vitreous opacities, unspecified eye
CPT/HCPCS: 36415; 80053; 80061; 81003; 82306; 83036; 84443; 85025; 85652; 86141

== ENCOUNTER 2025-03-10 08:39 | Outpatient (REF) | payer MEDICARE, SELFPAY ==
--- NOTE | ~2025-03-10 | XR_ITS ---
EXAMINATION: XR CHEST 2 VIEWS HISTORY: R06.02 - Shortness of breath COMPARISON: Comparison is made with the prior examination dated 12/12/2020. FINDINGS: PA and lateral views of the chest are submitted. The lungs are hyperinflated, consistent with COPD. There are mild increased interstitial markings without change. No focal airspace opacity is identified. There is no pleural effusion, pneumothorax, or pulmonary vascular congestion. The heart is normal in size. There is degenerative disc disease of the spine. XR/XR chest 2V IMPRESSION: COPD. No acute cardiopulmonary abnormality. Electronically signed by: Deacon Dudley MD 03/10/2025 02:59 PM EDT
--- OUTSIDE RECORDS SUMMARY | 2025-03-10 08:44 | XMS_ITS | Patient Health Record ---
Author Organization [facility] Address [address] [place] [address] Care Team Providers Care Belt Fixer Name Role Phone Guanaco Gillespie MD Primary Care Provider Cristino De La Vega Jr Unavailable [phone] Reason For Referral No Information Immunizations Vaccine Route Administration Date Status Comme nts Influenza Unknown 07/01/2019 Refused Social History Tobacco Use: Social History Observation Description Date Details (start date - stop date) Current Smoker NA - NA Tobacco Use/Smoking Question Answer Notes Patient is a current smoker How many cigarettes a day do you smoke? 6-10 How soon after you wake up d o you smoke your first cigarette? 31-60 minutes Are you interested in quitting? Thinking about q uitting Alcohol Screen Question Answer Notes Did you have a drink containing alcohol in the p ast year? No Points 0 Interpretation Negative Section Notes: Tobacco 1/2ppd. Alcohol tia es Tobacco 1/2ppd. Alcohol tia es Problems Problem Type SNOMED Code ICD Code Onset Dates Problem Status W/U Status Risk Notes Problem [id number] Colon cancer screening (Z12.11) Active confirmed Plan Of Treatment No Information Insurance Providers Payer Name Payer Address Payer Phone Subscriber Number Group Number Insured Name Patient Relationship to Insured Coverage Start Date Coverage End Date [employer] OF [place] [address] [place] [address] [id number] BECKI BRITT Self - patient is the insured Medical (General) History Medical History History ICD Code Migraine headaches Denies UT,DM,CVA,Lung disease,renal dise ase Surgical History Surgery Date(Month/Year) Abdominal wall hernia repair
== END 2025-03-10 08:40 | disposition home or self-care (01) ==
LOC: HO.XRAY 08:39
DX: R06.02 Shortness of breath (principal)
CPT/HCPCS: 71046

== ENCOUNTER → 2025-03-10 08:43 | Outpatient (BNV) | payer MEDICARE, SELFPAY | PROVIDERS: Visit Provider Radiology Diagnostic Radiology | DX: J44.9 Chronic obstructive pulmonary disease, unspecified (principal) | CPT/HCPCS: 71046 ==

== ENCOUNTER 2025-06-01 13:49 | Outpatient (AMB) | payer MEDICARE, SELFPAY ==
[2025-06-01 13:56] VITALS: BP 120/62; PULSE 63; RESP 18; TEMP 36.4; O2SAT 96; BMI 23.8
--- NOTE | 2025-06-01 13:56 | MHC.PC.OV ---
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 Accompanied by: Self / Same As Patient Allergies No Known Allergies Allergy (Verified 06/01/25 14:13) Medication List - Last Reconciled 06/01/25 by LUDA Sibley cholecalciferol (vitamin D3) 50 mcg PO DAILY Tobacco use date assessed: 06/01/25 Fall risk assessment: No Falls in past year Last assessed Fall Risk: 06/01/25 Dental Screening Dental Screen Date: 06/01/25 Did you have a dental visit in the last 12 months?: No Did you have a dental problem in the last 6 months where you did not have access to dental care?: No Was dental information given to patient?: No HPI annual exam - see comments HPI Details Dentist: no-refused to go-pulls out his teeth himself Eye: up to date-had his cataract done, reports that the he was getting a left eye float that since disappeared Snellen: Right: Left: Corrected vision: yes, reading glasses STI screening: Colonoscopy:Reports that he has one colonoscopy then each times after that it was cologuard they has been ok Pap Smer:n/a PHQ-9:n/a Flu:reports that he does not usually take this COVID: never had the covid vaccine either Tdap: Diet:regular diet Exercise:reports that he does not exercise, but he is always on the go posterior neck pain: will send to [facility] Medical History Vitamin D deficiency HLD (hyperlipidemia) Nicotine dependence, cigarettes, uncomplicated Arthritis Surgical History History of incision and drainage History of colonoscopy Hx of cataract surgery H/O hernia repair Family History Mother No problems noted. Father No problems noted. Social History Housing: House Alcohol intake: never Patient Tobacco Use Status: Current everyday Tobacco user Tobacco use type: Cigarette Cigarette Packs Per Day: 0.2 Cigarettes Per Day: 4 e-Cigarette/Vaping Use: Never Used Second Hand Smoke Exposure: No service: No Current occupational status: retired Cognitive needs: No Hearing needs: No Vision needs: Yes (reading glasses) Questionnaire Thrive Questionnaire Date Thrive assessed: 02/09/25 I am a: Patient What is your living situation today?: I have a steady place to live Within the past 12 months, did the food you bought not last and you didn't have the money to get more?: Never true Within the past 12 months, did you worry whether your food would run out before you got money to buy more?: Never true Do you have trouble paying for medicines?: No Do you have trouble getting transportation to medical appointments?: No Do you have trouble paying your heating and electricity bill?: No Do you have trouble taking care of your child, family member or friend?: No Do you have trouble with day-to-day activities such as bathing, preparing meals, shopping, managing finances, etc.?: No Are you currently unemployed and looking for a job?: No Are you interested in more education?: No Please select the resources that you would like help with: None Currently or been in a relationship where the following occur: No concerns reported THRIVE Score: 0 JARED-7 AMB Questionnaire JARED-7 Date JARED - 7 assessed: 02/16/25 Source: Developed by Drs. Deacon Walsh, Staci Kaplan, Sd Tsang and colleagues, with an educational see from [employer]. Physical exam (Primary Care) Vital Signs: Last Vital Signs Temp 97.5 F 06/01/25 13:56 Pulse 63 06/01/25 13:56 Resp 18 06/01/25 13:56 BP 120/62 06/01/25 13:56 Pulse Ox 96 06/01/25 13:56 Oxygen Delivery Method Room Air 06/01/25 13:56 BMI result Body Mass Index 23.8 Tobacco/Smoking Status: Tobacco use Status Tobacco use date assessed 06/01/25 06/01/25 14:02 Patient Tobacco Use Status Current everyday Tobacco 06/01/25 14:02 Tobacco use type Cigarette 06/01/25 14:02 e-Cigarette/Vaping Use Never Used 06/01/25 14:02 Thrive Assessment: Date of Thrive Assessment Date Thrive assessed 02/09/25 06/01/25 14:02 Currently or been in a relationship where the following occur: No concerns reported Immunizations Tenivac (PF) 5 Lf unit-2 Lf unit/0.5 mL intramuscular syringe Performing Provider: LUDA Sibley [facility] Administered by: WILBERT Camp on 06/01/25 14:25 Dose Route Admin Location Dispensed Lot Number Expiration Date [facility] 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 Panel Fast 6 Months E55.9 - Vitamin D deficiency, unspecified, E78.00 - Pure hypercholesterolemia, unspecified, I10 - Essential (primary) hypertension TSH reflex Free T4 6 Months E55.9 - Vitamin D deficiency, unspecified, E78.00 - Pure hypercholesterolemia, unspecified, I10 - Essential (primary) hypertension UA CC w/rflx Micro + Cult 6 Months E55.9 - Vitamin D deficiency, unspecified, E78.00 - Pure hypercholesterolemia, unspecified, I10 - Essential (primary) hypertension Vitamin D 25-OH Total 6 Months E55.9 - Vitamin D deficiency, unspecified, E78.00 - Pure hypercholesterolemia, unspecified, I10 - Essential (primary) hypertension Td Immunization Today Z23 - Encounter for immunization Lipid Panel 6 Months E55.9 - Vitamin D deficiency, unspecified, E78.00 - Pure hypercholesterolemia, unspecified, I10 - Essential (primary) hypertension
--- OUTSIDE RECORDS SUMMARY | 2025-06-01 17:02 | XMS_ITS | Patient Health Record ---
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 Name Role Phone Verna (RETIRED) Guanaco ANNE Primary Care Provide r Cristino Mauricio Jr Unavailable Reason For Referral No Information Immunizations Vaccine [...] Problem Status W/U Status Risk Notes Problem [id number] Colon cancer screening (Z12.11) Active confirmed Plan Of Treatment No Information Insurance Providers Payer Name Payer Address Payer Phone Subscriber Number Group Number Insured Name Patient Relationship to Insured Coverage Start Date Coverage End Date MEDICARE OF [employer] [address] [place] [address] [id number] BRITT Self - patient is the insured Medical (General) History Medical History History ICD Code Migraine headaches Denies [place],DM,CVA,Lung disease,renal dise ase Surgical History Surgery Date(Month/Year) Abdominal wall hernia repair
== END 2025-06-01 14:35 | disposition home or self-care (01) ==
LOC: HO.HMCH 13:50
DX: Z23 Encounter for immunization (principal)

== ENCOUNTER → 2025-06-01 13:49 | Outpatient (BNVA) | payer MEDICARE, SELFPAY | DX: Z00.00 Encounter for general adult medical examination without abnormal findings (principal); M54.2 Cervicalgia; H26.9 Unspecified cataract; H43.392 Other vitreous opacities, left eye; R06.02 Shortness of breath; E78.00 Pure hypercholesterolemia, unspecified; R74.8 Abnormal levels of other serum enzymes; E55.9 Vitamin D deficiency, unspecified; F17.210 Nicotine dependence, cigarettes, uncomplicated; Z23 Encounter for immunization | CPT/HCPCS: 90471; 90714; 99397 ==

== ENCOUNTER 2025-06-18 09:12 | Outpatient (AMB) | payer MEDICARE, SELFPAY ==
--- NOTE | 2025-06-18 07:49 | A.OFFVIS_ITS ---
Intake Visit Reasons: Current Smoker Allergies No Known Allergies Allergy (Verified 06/01/25 14:13) HPI HPI Current Smoker: Details: Initial visit for this 70yo smoker with a 28PYH. Patient started smoking at age 13 for 57 years at 1/2ppd. . Denies marijuana use. Denies second hand smoke exposure. Denies exposure to chemicals or substances like asbestos. . Denies known family history of lung cancer. Denies personal history of cancers. Denies chest CT in last year. . Denies recent travel outside the [place]. Denies recent respiratory illness or recent hospitalization for respiratory issues. Denies testing positive for COVID. Denies receiving COVID Vaccine. . Denies fever, chills, new/worsening cough, hemoptysis, hoarseness or dysphagia. Denies significant chest pain, significant dyspnea or unintentional weight loss. Patient Lung Cancer Screening Questionnaire reviewed with patient by provider. . Shared Decision Making Completed. Patient meets criteria. Discussed in detail with patient, the risk vs benefit of LDCT screening. Patient consents to proceed with scan. Discussed smoking cessation. [facility] Medical History (Updated 06/18/25 @ 09:31 by Ann Ramirez PA-C) Vitamin D deficiency HLD (hyperlipidemia) Nicotine dependence, cigarettes, uncomplicated Arthritis Surgical History (Updated 06/18/25 @ 09:29 by Ann Ramirez PA-C) History of ventral hernia repair History of bilateral cataract extraction History of incision and drainage History of colonoscopy Family History Mother No problems noted. Father No problems noted. Social History (Updated 06/18/25 @ 09:31 by Ann Ramirez PA-C) Housing: House Alcohol intake: never Patient Tobacco Use Status: Current everyday Tobacco user Tobacco use type: Cigarette Years Smoked: (onset 13yo, 1/2ppd x 55yrs, 28pyh) e-Cigarette/Vaping Use: Never Used Second Hand Smoke Exposure: No service: No Current occupational status: retired Cognitive needs: No Hearing needs: No Vision needs: Yes (reading glasses) Assessment & Plan Assessment & Plan (1) Nicotine dependence, cigarettes, uncomplicated: Comment: (onset 13yo, 1/2ppd x 57yrs, 28pyh) Code(s): F17.210 - Nicotine dependence, cigarettes, uncomplicated Category: Medical Plan: - SDM visit completed today in office. - Patient meets criteria for LDCT for lung cancer screening purposes and is asymptomatic. - Smoking cessation counseling offered. Patients can always call [phone]. - Will arrange for a LDCT scan of the chest for screening purposes at [facility]. - Risks, benefits, and alternatives were discussed in detail and the patient agrees to proceed. - Risks discussed include but are not limited to: radiation exposure, anxiety during testing and while awaiting results, false negatives, false positives and possibility of additional intervention such as further imaging or surgical procedures for benign disease. - Benefits are obviously detection of lung cancer at an early stage which can lead to improved outcomes. - Discussed the importance of screening program compliance with adherence to yearly LDCT scan as scheduled - or sooner interval scans for personalized screening regimen. - Discussed follow up plan. Our office will send a letter discussing results and if needed set up phone call and office visit based on CT findings. - Patient educated on results categorization and the management decisions for suspicious findings potentially found on the screening LDCT scan. Any patient with a Lung RADS score of 3 or 4 will be reviewed by a multidisciplinary team at [facility] to form a plan of action in regards to scan findings. - If further work up is warranted for a suspicious lung finding this will be followed by the Lung Cancer Screening program in conjunction with the Thoracic Surgery Department at [facility]. - A copy of the office note and LDCT will be sent to the patient's PCP - as well as documentation on any associated further plans of care. - Incidental findings on LDCT are the PCP's responsibility. These findings are indicated with an S finding on the LDCT Assessment. A note discussing the findings will be sent to the PCP who is then responsible for further management. - All questions answered.? Plan OF NOTE FOR PCP: The USPTF recommends all men age 65-75 who have ever smoked have a one-time Abdominal Ultrasound to screen for AAA - recommend if not done prior. Coding Level of Care Code Lung Cancer Screening G0296 Diagnoses Nicotine dependence, cigarettes, uncomplicated F17.210
--- OUTSIDE RECORDS SUMMARY | 2025-06-18 09:40 | XMS_ITS | Patient Health Record ---
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 Manager Entertainment And Media Name Role Phone Verna (RETIRED) Guanaco ANNE [...] Problem Status W/U Status Risk Notes Problem Colon cancer screening ([id number]) Colon cancer screening (Z12.11) Active confirmed Plan Of Treatment No Information Insurance Providers Payer Name Payer Address Payer Phone Subscriber Number Group Number Insured Name Patient Relationship to Insured Coverage Start Date Coverage End Date MEDICARE OF [employer] [address] [place] [address] [id number] BRITT Self - patient is the insured Medical (General) History Medical History History ICD Code Migraine headaches Denies [place],DM,CVA,Lung disease,renal dise ase Surgical History Surgery Date(Month/Year) Abdominal wall hernia repair
== END 2025-06-18 10:47 | disposition home or self-care (01) ==
PROVIDERS: Visit Provider Physician Assistant Medical
DX: F17.210 Nicotine dependence, cigarettes, uncomplicated (principal)
CPT/HCPCS: G0296

== ENCOUNTER 2025-06-18 09:29 | Outpatient (REF) | payer MEDICARE, SELFPAY ==
--- NOTE | ~2025-06-18 | CT_ITS ---
CLINICAL HISTORY: F17.210 - Nicotine dependence, cigarettes, uncomplicated CT lung cancer screening (LDCT) Comparison: None provided Technique: Axial CT images of the chest using low-dose technique. Referring provider counseled the patient on shared decision-making for LDCT screening. Additional counseling was provided on smoking cessation. Effective radiation dose total: DLP 36.4 mGycm, CTDIvol 1 mGy. Findings: Lung: Changes of pulmonary bullous disease. 0.5 cm right middle lobe circumscribed solid lesion. 0.7 cm left upper lobe pleural-based solid pulmonary lesion. Coronary artery calcifications: Severe Limited upper abdomen: Unremarkable Other: None IMPRESSION: Lung-RADS 3. Recommend six-month LDCT unless prior studies become available showing stability of the findings. This document has been electronically signed by: Arben Ward MD on 06/19/2025 08:57:49
== END 2025-06-18 09:30 | disposition home or self-care (01) ==
LOC: HO.CT 09:29
PROVIDERS: Visit Provider Physician Assistant Medical
DX: Z12.2 Encounter for screening for malignant neoplasm of respiratory organs (principal); F17.210 Nicotine dependence, cigarettes, uncomplicated
CPT/HCPCS: 71271

== ENCOUNTER → 2025-06-18 09:31 | Outpatient (BNV) | payer MEDICARE, SELFPAY | PROVIDERS: Visit Provider Specialist | DX: F17.210 Nicotine dependence, cigarettes, uncomplicated (principal) | CPT/HCPCS: 71271 ==

== ENCOUNTER 2025-07-21 09:51 | Outpatient (RCR) | payer MEDICARE, SELFPAY ==
--- NOTE | 2025-08-02 13:38 | MHC.PT.DC ---
[facility] [place] Office [place] Office [place] [facility] [address] Akilah Juarez [address] [phone] F: [phone] F: [phone] F: [phone] F: [phone] Physical Therapy Discharge Report Diagnosis: NECK PAIN Date of Surgery: NA Date of Evaluation: 06/23/25 Date of Discharge: 08/02/25 Treatments to Date: 4 Cancellations to Date: 0 No Shows to Date: 0 Discharge Status: Improved Function Independent with HEP Discharge Summary: has met goals of PT and is DCed on this date to independent home program Electronically signed by: Dee Hoffman PT DPT Please sign and return to therapist. Thank you for your referral.
== END 2025-08-02 13:38 | disposition home or self-care (01) ==
LOC: HO.PT 09:51
DX: M54.2 Cervicalgia (principal)
CPT/HCPCS: 97110; 97140; 97161; 97530; 97535